=== PATIENT | female | born 1980 | race Caucasian/White ===

== ENCOUNTER 2017-04-02 09:27 | Emergency (ER) | payer OTHER ==
[~2017-04-02] VITALS: Ht 160 cm; Wt 127.9 kg
[~2017-04-02 09:27] MED LIST: ALBUTEROL2.5 MG/0.1 IH; ALBUTEROL2.5 MG/31 INH; AMOXICILLIN875 MG PO; CLEOCIN HCL300 MG PO; HYDROCODONE-APA1 TA1; KEFLEX500 MG PO; LEXAPRO5 MG PO; MOBIC15 MG PO; PENTAZOCINE-NA1 EACH PO; PREDNISONE 10 M10 M1 PO; PREDNISONE 20 M20 MG PO; PREDNISONE50 MG PO; ROBAXIN 750 MG750 M1 PO; TRAMADOL 50 MG50 MG PO; TUSSIONEX PENN473 ML PO; VENTOLIN HFA 1818 GM; VENTOLIN HFA 1818 GM INH; VICODIN; VITAMIN D 5050000 I1 PO; XANAX 0.5 MG0.5 MG PO
[2017-04-02] MEDS ORDERED: TAMIFLU6 MG/1 ML PO (09:41)
[2017-04-02] MEDS ORDERED: MUCINEX100 MG PO (09:41)
[2017-04-02] MEDS ORDERED: TYLENOL325 MG PO (09:42)
[2017-04-02] MEDS ORDERED: TESSALON PERLE100 MG PO (09:42)
[2017-04-02] MEDS ORDERED: ROBITUSSIN100 MG/53 PO (09:42)
[2017-04-02] MEDS ORDERED: IBUPROFEN 200200 M1 PO (09:42)
[2017-04-02] MEDS ORDERED: PREDNISONE 20 M20 M1 PO (09:46)
[2017-04-02] MEDS ORDERED: TUSSIONEX PENN115 ML PO (09:46)
[2017-04-02] MEDS ORDERED: ZPAK PO (09:46)
[2017-04-02 09:50] VITALS: BP 151/92
== END 2017-04-02 09:50 | disposition home or self-care (01) ==
LOC: M.ERS 09:27
DX: J06.9 Acute upper respiratory infection, unspecified (principal); J45.909 Unspecified asthma, uncomplicated; Z90.49 Acquired absence of other specified parts of digestive tract; Z88.5 Allergy status to narcotic agent

== ENCOUNTER 2017-05-20 10:27 | Emergency (ER) | payer OTHER ==
[~2017-05-20] VITALS: Ht 160 cm; Wt 124.7 kg
[~2017-05-20 10:27] MED LIST changes: +IBUPROFEN 200200 M1 PO; +MUCINEX100 MG PO; +PREDNISONE 20 M20 M1 PO; +ROBITUSSIN100 MG/53 PO; +TAMIFLU6 MG/1 ML PO; +TESSALON PERLE100 MG PO; +TUSSIONEX PENN115 ML PO; +TYLENOL325 MG PO; +ZPAK PO
[2017-05-20] MEDS ORDERED: OMEPRAZOLE40 MG PO (10:37)
[2017-05-20 10:58] LABS: ABSOLUTE BASOPHILS 0.1 thou/uL (0.0-0.2); ABSOLUTE EOSINOPHILS 0.1 thou/uL (0.0-0.7); ABSOLUTE LYMPHOCYTES 2.4 thou/uL (0.8-5.3); ABSOLUTE MONOCYTES 0.7 thou/uL (0.0-1.2); ABSOLUTE NEUTROPHILS 5.9 thou/uL (1.6-8.1); BASOPHILS 1.1 %; EOSINOPHILS 0.7 %; HEMATOCRIT 40.4 % (37.0-47.0); HEMOGLOBIN 14.1 gm/dL (12.0-15.0); LYMPHOCYTES 26.3 %; MCH 29.1 pg (26.0-34.0); MCHC 34.9 g/dL (28.0-37.0); MCV 83.4 fL (80.0-100.0); MONOCYTES 7.8 %; MPV 7.4 fl. (7.2-11.1); NUCLEATED RBCS 0 /100WBC; PLATELET COUNT* 293 thou/uL (150-400); POLYS 64.1 %; RBC 4.85 mil/uL (4.20-5.00); WBC 9.2 thou/uL (4.0-11.0)
[2017-05-20 11:07] LABS: ANION GAP 7 mmol/L (7-16); BUN 15 mg/dL (7-18); CALCIUM 8.7 mg/dL (8.5-10.1); CHLORIDE 105 mmol/L (98-107); CO2 29 mmol/L (21-32); CREATININE 0.9 mg/dL (0.6-1.3); GLUCOSE 108 mg/dL (70-99); POTASSIUM 3.4 mmol/L (3.5-5.1); SODIUM 141 mmol/L (136-145)
[2017-05-20 11:10] LABS: APTT 26.6 Seconds (25.0-31.3); PROTIME 10.1 Seconds (9.20-11.50)
[2017-05-20 11:29] LABS: ALBUMIN 3.6 g/dL (3.4-5.0); ALKALINE PHOSPHATASE 93 U/L (46-116); CK-MB MASS < 0.5 ng/mL (<0.5-3.6); LIPASE 129 U/L (73-393); MAGNESIUM 1.9 mg/dL (1.8-2.4); NT-PRO BRAIN NAT PEPTIDE 7 pg/mL (<300); SGOT 20 U/L (15-37); SGPT 26 U/L (30-65); TOTAL BILIRUBIN 0.5 mg/dL (<0.1-1.0); TOTAL PROTEIN 7.5 g/dL (6.4-8.2); TROPONIN-I LEVEL <0.06 ng/mL (<0.06)
[2017-05-20 11:35] VITALS: BP 115/71
--- NOTE | 2017-05-21 14:26 | EKG ---
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 : 1980 Requested By: Shyam Michaels Order Number: [id number] MD: Raciel Potter Measurements Intervals [place] Rate: 103 P: 27 PA: 150 QRS: 2 QRSD: 99 T: 18 QT: 342 QTc: 448 Interpretive Statements Sinus tachycardia Low voltage, precordial leads Abnormal R-wave progression, early transition Borderline T abnormalities, anterior leads Compared to ECG 07/29/2015 01:02:50 Low QRS voltage now present T-wave abnormality now present Intraventricular conduction delay no longer present ST (T wave) deviation no longer present Electronically Signed On 05-21-2017 14:26:05 CDT by Raciel Potter [email or web address] <ELECTRONICALLY SIGNED> By: Raciel Potter MD, FACC 05/21/17 1426 1032 1032 Raciel Potter MD, FAC /EPI
== END 2017-05-20 11:35 | disposition home or self-care (01) ==
LOC: M.ERS 10:27
PROVIDERS: Family Medicine
DX: R07.9 Chest pain, unspecified (principal); J45.909 Unspecified asthma, uncomplicated; Z90.49 Acquired absence of other specified parts of digestive tract; Z88.5 Allergy status to narcotic agent

== ENCOUNTER 2018-06-30 09:28 | Emergency (ER) | payer OTHER ==
[~2018-06-30] VITALS: Ht 160 cm; Wt 125.7 kg
[~2018-06-30 09:28] MED LIST changes: +OMEPRAZOLE40 MG PO
[2018-06-30 09:56] LABS: URINE BILIRUBIN NEGATIVE (Negative); URINE BLOOD 3+ (Negative); URINE CLARITY CLEAR; URINE COLOR YELLOW; URINE GLUCOSE-RANDOM NEGATIVE (Negative); URINE KETONES TRACE (Negative); URINE LEUKOCYTES-REFLEX NEGATIVE (Negative); URINE NITRITE-REFLEX NEGATIVE (Negative); URINE PROTEIN 1+ (Negative); URINE SPECIFIC GRAVITY 1.025 (1.005-1.030); URINE UROBILINOGEN 0.2 E.U./dl (0.2-1.0)
[2018-06-30 10:05] LABS: ABSOLUTE BASOPHILS 0.1 thou/uL (0.0-0.2); ABSOLUTE EOSINOPHILS 0.1 thou/uL (0.0-0.7); ABSOLUTE LYMPHOCYTES 2.3 thou/uL (0.8-5.3); ABSOLUTE MONOCYTES 0.8 thou/uL (0.0-1.2); BASOPHILS 1.2 %; EOSINOPHILS 0.5 %; HEMATOCRIT 43.7 % (37.0-47.0); HEMOGLOBIN 15.2 gm/dL (12.0-15.0); MCH 28.9 pg (26.0-34.0); MCHC 34.9 g/dL (28.0-37.0); MCV 82.8 fL (80.0-100.0); MONOCYTES 7.9 %; NUCLEATED RBCS 0 /100WBC; PLATELET COUNT* 311 thou/uL (150-400); POLYS 68.4 %; RBC 5.28 mil/uL (4.20-5.00); RDW-CV 13.8 % (10.5-14.5); WBC 10.3 thou/uL (4.0-11.0)
[2018-06-30 10:07] LABS: BACTERIA-REFLEX None Seen /HPF (None Seen); CASTS None Seen /LPF (None Seen); CRYSTALS None Seen /LPF (None Seen); MUCUS None Seen strn/LPF (None Seen); SQUAMOUS 0-3 Few /LPF (0-3); URINE RBC >20 Many /HPF (0-2); URINE WBC-REFLEX None Seen /HPF (0-5)
[2018-06-30 10:12] LABS: CALCIUM 9.3 mg/dL (8.5-10.1); POTASSIUM 3.3 mmol/L (3.5-5.1)
[2018-06-30 10:16] LABS: ALBUMIN 3.8 g/dL (3.4-5.0); TOTAL BILIRUBIN 0.5 mg/dL (<0.1-1.0); TOTAL PROTEIN 7.7 g/dL (6.4-8.2)
[2018-06-30 10:55] VITALS: BP 114/68
== END 2018-06-30 10:55 | disposition home or self-care (01) ==
LOC: M.ERS 09:28
PROVIDERS: Family Medicine
DX: R10.9 Unspecified abdominal pain (principal); M79.604 Pain in right leg; J45.909 Unspecified asthma, uncomplicated; Z88.5 Allergy status to narcotic agent; Z90.49 Acquired absence of other specified parts of digestive tract

== ENCOUNTER → 2018-07-21 | Outpatient (CLI) | payer OTHER | LOC: M.RAD 15:47 | DX: N39.0 Urinary tract infection, site not specified (principal); M54.5 Low back pain ==

== ENCOUNTER → 2018-12-07 | Outpatient (CLI) | payer OTHER | LOC: M.ULTRA 09:39 | DX: R22.42 Localized swelling, mass and lump, left lower limb (principal) ==

== ENCOUNTER 2020-09-17 21:11 | Inpatient (IN) | payer OTHER ==
[~2020-09-17] VITALS: Ht 160 cm; Wt 128.6 kg
[2020-09-17 21:15] VITALS: BP 100/61
[2020-09-17 22:13] LABS: BE -0.1 mmol/L (-2 to +3); PCO2 30.8 mmHg (35.0-45.0); PO2 60.1 mmHg (75.0-100.0); pH 7.478 (7.340-7.450)
[2020-09-18] VITALS (10 sets, daily range): BP systolic 112–141; BP diastolic 55–89
[2020-09-18 05:53] LABS: CALCIUM 7.3 mg/dL (8.5-10.1); CREATININE 0.8 mg/dL (0.6-1.3)
[2020-09-18 05:57] LABS: ALBUMIN 2.9 g/dL (3.4-5.0); TOTAL BILIRUBIN 0.4 mg/dL (<0.1-1.0); TOTAL PROTEIN 6.7 g/dL (6.4-8.2)
[2020-09-18 05:58] LABS: POTASSIUM 2.8 mmol/L (3.5-5.1)
[2020-09-18 06:02] LABS: ABSOLUTE LYMPHOCYTES 0.5 thou/uL (0.8-5.3); ABSOLUTE MONOCYTES 0.1 thou/uL (0.0-1.2); ABSOLUTE NEUTROPHILS 2.9 thou/uL (1.6-8.1); BASOPHILS 0.3 %; HEMATOCRIT 38.6 % (37.0-47.0); HEMOGLOBIN 13.3 gm/dL (12.0-15.0); LYMPHOCYTES 15.3 %; MCH 28.4 pg (26.0-34.0); MCHC 34.4 g/dL (28.0-37.0); MCV 82.7 fL (80.0-100.0); MONOCYTES 3.3 %; MPV 7.1 fl. (7.2-11.1); NUCLEATED RBCS 0 /100WBC; PLATELET COUNT* 163 thou/uL (150-400); POLYS 81.1 %; RBC 4.67 mil/uL (4.20-5.00); RDW-CV 14.2 % (10.5-14.5); WBC 3.6 thou/uL (4.0-11.0)
--- NOTE | 2020-09-18 13:22 | NUR ---
INFECTION CONTROL: PER [facility] DEPARTMENT PATIENT HAD A POSITIVE COVID 19 PCR TEST ON 09/11/20 AT [facility].
--- NOTE | 2020-09-18 17:03 | NUR ---
RT WAS CALLED DUE TO THE PATIENT'S O2 SAT DROPPING TO 89%. RT INCREASED THE PATIENT'S OXYGEN TO 15 LITERS VIA NASAL CANULA AND REPORT THEY ARE GOING TO PUT THE PATIENT ON A BUBBLER AND THEN HI FLOW O2.
--- NOTE | 2020-09-18 18:07 | NUR ---
PT PLACED ON BIPAP AT 12/8, 80% BY RESPIRATORY THERAPY. PT'S O2 SATS AT THIS TIME ARE 96%.
--- NOTE | 2020-09-18 18:08 | NUR ---
DR. MCGHEE WAS CONTACTED ABOUT THE PATIENT'S ELEVATED D-DIMER LEVEL OF 0.70 AND INQUIRED IF SHE WOULD LIKE THE PATIENT TO HAVE A CTA TO RULE OUT PE. DR. MCGHEE DOES NOT WANT TO ORDER A CTA AT THIS TIME DUE TO THE PATIENT BEING UNSTABLE AND NOT WANTING TO LAY THE PATIENT FLAT.
[2020-09-18 18:40] LABS: BE -1.5 mmol/L (-2 to +3); PCO2 31.2 mmHg (35.0-45.0); pH 7.456 (7.340-7.450)
[2020-09-18 18:48] LABS: PO2 179.9 mmHg (75.0-100.0)
[2020-09-18 21:52] LABS: ALBUMIN 2.8 g/dL (3.4-5.0); CALCIUM 7.2 mg/dL (8.5-10.1); CREATININE 0.8 mg/dL (0.6-1.3); TOTAL BILIRUBIN 0.5 mg/dL (<0.1-1.0); TOTAL PROTEIN 6.7 g/dL (6.4-8.2)
[2020-09-18 21:56] LABS: POTASSIUM 2.7 mmol/L (3.5-5.1)
[2020-09-19] VITALS (57 sets, daily range): BP systolic 87–133; BP diastolic 48–85
[2020-09-19 08:27] LABS: HEMATOCRIT 35.4 % (37.0-47.0); HEMOGLOBIN 12.6 gm/dL (12.0-15.0); MCH 28.9 pg (26.0-34.0); MCHC 35.5 g/dL (28.0-37.0); MCV 81.5 fL (80.0-100.0); MPV 7.2 fl. (7.2-11.1); RBC 4.35 mil/uL (4.20-5.00); RDW-CV 13.8 % (10.5-14.5); WBC 4.4 thou/uL (4.0-11.0)
[2020-09-19 08:35] LABS: CALCIUM 7.4 mg/dL (8.5-10.1)
--- NOTE | 2020-09-19 09:29 | NUR ---
CM COMPLETED THE INITIAL ASSESSMENT WITH PT'S MOTHER, HANS, D/T PT BEING ON COVID ISOLATION PRECAUTIONS. PT LIVES WITH HER SISTER AND LAURA IN [place]. 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 PT RECEIVED 1ST COVID VACCINE AND CONTRACTED COVID "THE DAY BEFORE SHE WAS SUPPOSED TO GO FOR HER SECOND SHOT." PT IS ACTIVE AND INDEPENDENT WITH CARES. PT HAS NO HX WITH OR SNF. PT HAS NO DMES, OTHER THAN ALBUETROL INHALOR. PT IS ON BIPAP, IT WAS INCREASED FROM 50% TO 80% CM TO CONT TO FOLLOW.
[2020-09-19 15:17] LABS: CALCIUM 7.7 mg/dL (8.5-10.1); CREATININE 0.9 mg/dL (0.6-1.3); MAGNESIUM 2.3 mg/dL (1.8-2.4); POTASSIUM 3.6 mmol/L (3.5-5.1)
--- NOTE | 2020-09-19 23:23 | CON ---
[address] [address] CONSULTATION Name: GISELL JUAREZ Room: [address] IN M.R.#: [id number] Admission: 09/18/20 Attend Phys: Haydee Cha MD Discharge: Date of : 78 Report #: [id number] THIS REPORT FOR: cc: Carla Rodriguez Mischelle RNP Pervez, Adeel MD ~ DATE OF CONSULTATION: 09/19/2020 Consult has been requested by Dr. Choudhary. INDICATION FOR CONSULTATION: Acute hypoxemic respiratory failure secondary to COVID-19. HISTORY OF PRESENT ILLNESS: This is a 39-year-old female. She has a history of morbid obesity, body mass index is 47. The patient also does have a history of bronchial asthma. She has not previously been diagnosed with obstructive sleep apnea; however, it appears to me that she has previously undiagnosed obstructive sleep apnea. 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 The patient in fact has been vaccinated with the Pfizer COVID-19 vaccine. She has received the first dose over three weeks ago. She was due for the second dose last Wednesday, which she missed. The patient has now presented with worsening shortness of breath, has had a cough. There is not much sputum. She has a high-grade fever, has body aches and chills. Has had a headache. Since admission, there has been a progressively increasing hypoxemia. The patient initially was maintaining O2 saturation with 2 liters nasal cannula although she was hypoxemic on room air. The patient is currently needing an 80% BiPAP, which is set at 12/8 TO maintain O2 saturation in the low 90s. She also is tachypneic, respiratory rate is around 35. She had a high-grade fever this morning at 38.9. The patient remains fully alert and awake. REVIEW OF SYSTEMS: For 12 points is negative except as mentioned above. PAST MEDICAL HISTORY: Bronchial asthma; morbid obesity, body mass index 47; cholecystectomy; possible history of epilepsy. CURRENT MEDICATIONS: List in [employer] reviewed. Home medication list in [employer] reviewed. ALLERGIES: She has had an ADVERSE REACTION OR ALLERGY TO CODEINE. SOCIAL HISTORY: Lifetime nonsmoker. No known history of heavy alcohol use or illegal drug use. FAMILY HISTORY: There [place] [address] CONSULTATION Name: GISELL JUAREZ Room: [address]#: [id number] Admission: 09/18/20 Attend Phys: Haydee Cha MD Discharge: Date of : 78 Report #: [id number] PHYSICAL EXAMINATION: GENERAL: She is alert, awake and oriented. She has had a BiPAP of 12/8, 80% FIO2. O2 saturation is 93-94%. She is sitting in a chair. VITAL SIGNS: Respiratory rate is elevated, it around 34-35, heart rate 80, blood pressure 100/53, high-grade fever this morning 38.9. HEENT: Normocephalic and atraumatic. BiPAP mask is in place. NECK: Does not show raised JVP, asymmetry, mass or lymph nodes. CHEST: Symmetrical expansion on inspection and palpation. On auscultation, breath sounds are bilaterally equal, but decreased. I do not hear any added sounds. HEART: Regular. There is no murmur. ABDOMEN: Soft and nontender. EXTREMITIES: Lower extremities show no edema, no calf tenderness. SKIN: Dry and intact. NEUROLOGIC: Moves all extremities bilaterally equally and spontaneously with no focal deficit identified. LABORATORY DATA: The patient's last available chest x-rays from night before last shows bilateral infiltrates consistent with COVID-19. The patient's lab work in [facility] reviewed. Arterial blood gas consistent with acute hypoxemic respiratory failure, also in [facility] reviewed. COVID-19 antigen is positive. ASSESSMENT AND PLAN: 1. Acute hypoxemic respiratory failure and ARDS secondary to COVID-19. I adjusted the BiPAP. For now, we will keep her on the BiPAP. It may be possible to maintain O2 saturation with a heated high-flow nasal cannula at this time; however, the patient also has a high work of breathing. If her work of breathing reduces, certainly we will try her off BiPAP while awake. She needs a BiPAP while asleep for now. 2. COVID-19. Agree with dexamethasone, currently 10 mg b.i.d. Considering that she is hypoxemic and also has a history of bronchial asthma, I feel this is reasonable. I did not change the dose at this time. We will continue with remdesivir. Follow LFTs. She is due for a second unit of convalescent plasma today. Note that she was vaccinated with one dose of Pfizer more than three weeks ago. If Actemra becomes available, I recommend giving her Actemra as well. 3. Pulmonary infiltrates. Pending further evaluation. We will treat with broad spectrum antibiotics. Cultures and serologies are ordered. Zithromax and ceftriaxone ordered. 4. Asthma exacerbation, dexamethasone as above, also on DuoNeb. 5. Obstructive sleep apnea, she appears to have underlying, on BiPAP at this time. 6. Hypokalemia/hypotension/fluid and electrolytes. I would like to diurese her [address] [address] CONSULTATION Name: GISELL JUAREZ Room: [address] IN .R.#: [id number] Admission: 09/18/20 Attend Phys: Haydee Cha MD Discharge: Date of : 78 Report #: [id number] if possible. I will go ahead and give her some midodrine to facilitate this. I would, however, wait until her potassium is replaced. Repeat labs for this afternoon are ordered 7. DVT prophylaxis. I will increase Lovenox to intermediate dose. D-dimer is mildly elevated. 8. Gastrointestinal prophylaxis, Protonix. 9. Clostridium difficile prophylaxis, Lactinex. 10. Limited IV access. Agree with plans for a PICC line placement. 11. Hyperglycemia. I would anticipate rise in blood glucoses. Therefore, I will go ahead and start insulin sliding scale. The patient is critically ill at this time. Total time spent providing critical care to this patient today exceeds 42 minutes. <ELECTRONICALLY SIGNED> By: Aakash Causey MD 09/19/20 2323 1356 2115Avel Causey MD /nt
[2020-09-20] VITALS (49 sets, daily range): BP systolic 74–149; BP diastolic 45–95
[2020-09-20 04:35] LABS: ABSOLUTE LYMPHOCYTES 0.4 thou/uL (0.8-5.3); ABSOLUTE MONOCYTES 0.2 thou/uL (0.0-1.2); ABSOLUTE NEUTROPHILS 2.9 thou/uL (1.6-8.1); BASOPHILS 0.3 %; HEMATOCRIT 36.4 % (37.0-47.0); HEMOGLOBIN 12.4 gm/dL (12.0-15.0); LYMPHOCYTES 12.5 %; MCH 28.2 pg (26.0-34.0); MCHC 34.1 g/dL (28.0-37.0); MCV 82.5 fL (80.0-100.0); MONOCYTES 5.1 %; MPV 6.8 fl. (7.2-11.1); NUCLEATED RBCS 0 /100WBC; PLATELET COUNT* 193 thou/uL (150-400); POLYS 82.1 %; RBC 4.42 mil/uL (4.20-5.00); RDW-CV 14.1 % (10.5-14.5); WBC 3.6 thou/uL (4.0-11.0)
[2020-09-20 05:07] LABS: ALBUMIN 2.6 g/dL (3.4-5.0); CREATININE 0.9 mg/dL (0.6-1.3); MAGNESIUM 2.7 mg/dL (1.8-2.4); POTASSIUM 3.5 mmol/L (3.5-5.1); TOTAL BILIRUBIN 0.4 mg/dL (<0.1-1.0)
--- NOTE | 2020-09-20 14:16 | NUR ---
ICU Rounds: Patient currently on HF NC (FiO2 100% and 55L). Bipap used as needed. Continued abx, steroids and remdesevir. Patient to remain through the weekend.
[2020-09-20 22:35] LABS: URINE BILIRUBIN NEGATIVE (Negative); URINE BLOOD 3+ (Negative); URINE CLARITY CLEAR; URINE COLOR YELLOW; URINE GLUCOSE-RANDOM TRACE (Negative); URINE KETONES NEGATIVE (Negative); URINE LEUKOCYTES-REFLEX TRACE (Negative); URINE NITRITE-REFLEX NEGATIVE (Negative); URINE PROTEIN 1+ (Negative); URINE SPECIFIC GRAVITY 1.015 (1.005-1.030); URINE UROBILINOGEN 0.2 E.U./dl (0.2-1.0)
[2020-09-20 22:47] LABS: BACTERIA-REFLEX 1-9 Few /HPF (None Seen); CASTS None Seen /LPF (None Seen); CRYSTALS None Seen /LPF (None Seen); SQUAMOUS 4-10 Moderate /LPF (0-3); URINE WBC-REFLEX 0-5 Rare /HPF (0-5)
[2020-09-21] VITALS (35 sets, daily range): BP systolic 96–149; BP diastolic 55–113
[2020-09-21 03:42] LABS: HEMATOCRIT 36.8 % (37.0-47.0); HEMOGLOBIN 12.8 gm/dL (12.0-15.0); MCH 28.6 pg (26.0-34.0); MCHC 34.9 g/dL (28.0-37.0); MCV 81.8 fL (80.0-100.0); MPV 6.7 fl. (7.2-11.1); NUCLEATED RBCS 0 /100WBC; RBC 4.49 mil/uL (4.20-5.00); RDW-CV 14.5 % (10.5-14.5); WBC 12.2 thou/uL (4.0-11.0)
[2020-09-21 03:56] LABS: ALBUMIN 2.6 g/dL (3.4-5.0); CALCIUM 7.8 mg/dL (8.5-10.1); CREATININE 0.9 mg/dL (0.6-1.3); MAGNESIUM 2.7 mg/dL (1.8-2.4); PHOSPHORUS* 2.8 mg/dL (2.5-4.9); POTASSIUM 3.3 mmol/L (3.5-5.1); TOTAL BILIRUBIN 0.4 mg/dL (<0.1-1.0); TOTAL PROTEIN 6.5 g/dL (6.4-8.2)
[2020-09-21 04:12] LABS: PLATELET COUNT* 277 thou/uL (150-400)
[2020-09-21 06:43] LABS: ABSOLUTE LYMPHOCYTES 0.2 thou/uL (0.8-5.3); ABSOLUTE MONOCYTES 0.5 thou/uL (0.0-1.2); ABSOLUTE NEUTROPHILS 11.5 thou/uL (1.6-8.1); PLATELET ESTIMATE ADEQUATE
[2020-09-21 08:57] LABS: URINE BILIRUBIN NEGATIVE (Negative); URINE BLOOD 3+ (Negative); URINE CLARITY CLEAR; URINE COLOR YELLOW; URINE GLUCOSE-RANDOM NEGATIVE (Negative); URINE KETONES NEGATIVE (Negative); URINE LEUKOCYTES NEGATIVE (Negative); URINE NITRITE NEGATIVE (Negative); URINE PROTEIN 1+ (Negative); URINE UROBILINOGEN 0.2 E.U./dl (0.2-1.0)
[2020-09-21 09:23] LABS: CASTS None Seen /LPF (None Seen); CRYSTALS None Seen /LPF (None Seen); SQUAMOUS 0-3 Few /LPF (0-3); URINE RBC 3-10 Few /HPF (0-2); URINE WBC 0-5 Rare /HPF (0-5)
[2020-09-22] VITALS (23 sets, daily range): BP systolic 112–165; BP diastolic 42–119
[2020-09-23] VITALS (137 sets, daily range): BP systolic 75–167; BP diastolic 33–103
[2020-09-23 05:27] LABS: BE 3.9 mmol/L (-2 to +3); PCO2 36.7 mmHg (35.0-45.0); pH 7.488 (7.340-7.450)
--- NOTE | 2020-09-23 07:40 | NUR ---
Critical ABG's called to Dr George, orders to intubate pt received. Pt was intubated by Dr Tena, (see ventilator bundles) Propofol and fentanyl started for sedation.
[2020-09-23 09:49] LABS: BE 0.5 mmol/L (-2 to +3); PCO2 38.3 mmHg (35.0-45.0); pH 7.428 (7.340-7.450)
[2020-09-23 09:51] LABS: PO2 56.4 mmHg (75.0-100.0)
[2020-09-23 12:03] LABS: HEMATOCRIT 38.8 % (37.0-47.0); HEMOGLOBIN 13.3 gm/dL (12.0-15.0); MCH 28.8 pg (26.0-34.0); MCHC 34.3 g/dL (28.0-37.0); MCV 83.8 fL (80.0-100.0); MPV 7.4 fl. (7.2-11.1); NUCLEATED RBCS 0 /100WBC; RBC 4.63 mil/uL (4.20-5.00); RDW-CV 14.3 % (10.5-14.5); WBC 28.7 thou/uL (4.0-11.0)
[2020-09-23 12:05] LABS: PLATELET COUNT* 106 thou/uL (150-400)
[2020-09-23 12:12] LABS: CALCIUM 7.3 mg/dL (8.5-10.1); CREATININE 1.5 mg/dL (0.6-1.3); POTASSIUM 4.4 mmol/L (3.5-5.1)
[2020-09-23 12:16] LABS: ALBUMIN 2.7 g/dL (3.4-5.0); MAGNESIUM 2.4 mg/dL (1.8-2.4); TOTAL BILIRUBIN 1.4 mg/dL (<0.1-1.0); TOTAL PROTEIN 6.6 g/dL (6.4-8.2)
[2020-09-23 13:07] LABS: ABSOLUTE LYMPHOCYTES 1.7 thou/uL (0.8-5.3); ABSOLUTE MONOCYTES 0.6 thou/uL (0.0-1.2); ABSOLUTE NEUTROPHILS 26.4 thou/uL (1.6-8.1); PLATELET ESTIMATE ADEQUATE
--- NOTE | 2020-09-23 15:34 | 2DMMODE ---
[place] [address] 2 D/M-MODE ECHOCARDIOGRAM Name: GISELL JUAREZ Room: [address] ADM IN .R.#: [id number] Admission: 09/18/20 Attend Phys: Haydee Cha, Discharge: Date of : 78 Date of Service: 09/23/20 1533 Report #: [id number] THIS REPORT FOR: cc: Carla Rodriguez Mischelle RNP Blick, David R. MD [facility] ~ APPROVED REPORT Study performed: 09/23/2020 10:30:22 EXAM: Comprehensive 2D, Doppler, and color-flow Echocardiogram Patient Location: In-Patient Room #: 003 Status: routine BSA: 2.23 HR: 83 bpm BP: 94/45 mmHg Rhythm: NSR Other Information Study Quality: Fair Indications Dyspnea 2D Dimensions LVOT Diam: 19.70 (18-24mm) Volumes Left Atrial Volume (Systole) LA ESV Index: 14.40 mL/m2 Aortic Valve AoV Peak Pj.: 1.08 m/s AO Peak Gr.: 4.63 mmHg LVOT Max P.80 mmHg AO Mean Gr.: 2.93 mmHg LVOT Mean P.02 mmHg LVOT Max V: 1.10 m/s AO V2 VTI: 18.60 cm LVOT Mean V: 0.64 m/s DEMI (VTI): 3.37 cm2 LVOT V1 VTI: 20.55 cm Mitral Valve E/A Ratio: 1.06 MV Decel. Time: 252.78 ms MV E Max Pj.: 0.61 m/[place] [address] 2 D/M-MODE ECHOCARDIOGRAM Name: GISELL JUAREZ Room: [address] IN ..#: [id number] Admission: 09/18/20 Attend Phys: Haydee Cha, Discharge: Date of : 78 Date of Service: 09/23/20 1533 Report #: [id number] MV PHT: 73.31 ms MVA (PHT): 3.00 cm2 TDI E/Lateral E': 5.55 E/Medial E': 5.55 Medial E' Pj.: 0.11 m/s Lateral E' Pj.: 0.11 m/s Tricuspid Valve RAP Estimate: 5.00 mmHg TR Peak Gr.: 40.08 mmHg RVSP: 45.00 mmHg PA Pressure: 45.00 mmHg Left Ventricle The left ventricle is normal size. There is normal LV segmental wall motion. There is normal left ventricular wall thickness. Left ventricular systolic function is normal. The left ventricular ejection fraction is within the normal range. LVEF is 60-65%. The left ventricular diastolic function is normal. Right Ventricle The right ventricle is normal size. The right ventricular systolic function is normal. Atria The left atrium size is normal. The right atrium size is normal. Aortic Valve The aortic valve is normal in structure. No aortic regurgitation is present. There is no aortic valvular stenosis. Mitral Valve The mitral valve is normal in structure. There is trace mitral valve regurgitation noted. No evidence of mitral valve stenosis. Tricuspid Valve The tricuspid valve is normal in structure. Mild tricuspid regurgitation. estimated pa pressure 50 mm hg Pulmonic Valve The pulmonary valve is normal in structure. There is no pulmonic valvular regurgitation. Great Vessels The aortic root is normal in size. IVC [place] [address] 2 D/M-MODE ECHOCARDIOGRAM Name: GISELL JUAREZ Room: [address] IN M.R.#: [id number] Admission: 09/18/20 Attend Phys: Haydee Cha, Discharge: Date of : 78 Date of Service: 09/23/20 1533 Report #: [id number] collapses >50% with inspiration. Pericardium There is no pericardial effusion. <Conclusion> LVEF is 60-65%. Mild tricuspid regurgitation. estimated pa pressure 50 mm hg <ELECTRONICALLY SIGNED> By: Oc Rowe MD, [facility] 09/23/20 [phone] 32 Oc Rowe MD, [facility] /INF
--- NOTE | 2020-09-23 16:11 | NUR ---
ICU ROUNDS: PT IS ON VENT, INTUBATION WAS ORDERED D/T "CRITICAL ABGS. SEDATION ALSO STARTED.
[2020-09-23 17:23] LABS: BE -3.1 mmol/L (-2 to +3); PO2 95.2 mmHg (75.0-100.0)
[2020-09-23 17:26] LABS: PCO2 68.2 mmHg (35.0-45.0); pH 7.207 (7.340-7.450)
[2020-09-23 17:51] LABS: ALBUMIN 2.8 g/dL (3.4-5.0); CALCIUM 7.5 mg/dL (8.5-10.1); CREATININE 1.8 mg/dL (0.6-1.3); DIRECT BILIRUBIN 0.7 mg/dL (<0.1-0.3); MAGNESIUM 2.4 mg/dL (1.8-2.4); POTASSIUM 4.7 mmol/L (3.5-5.1); TOTAL BILIRUBIN 1.2 mg/dL (<0.1-1.0); TOTAL PROTEIN 6.6 g/dL (6.4-8.2)
[2020-09-23 20:34] LABS: BE -5.7 mmol/L (-2 to +3); PCO2 45.6 mmHg (35.0-45.0); PO2 91.7 mmHg (75.0-100.0)
[2020-09-24] VITALS (24 sets, daily range): BP systolic 95–182; BP diastolic 54–95
[2020-09-24 07:20] LABS: ABSOLUTE BASOPHILS 0.1 thou/uL (0.0-0.2); ABSOLUTE LYMPHOCYTES 0.8 thou/uL (0.8-5.3); ABSOLUTE MONOCYTES 1.5 thou/uL (0.0-1.2); ABSOLUTE NEUTROPHILS 22.2 thou/uL (1.6-8.1); BASOPHILS 0.5 %; EOSINOPHILS 0.1 %; HEMATOCRIT 38.3 % (37.0-47.0); HEMOGLOBIN 12.8 gm/dL (12.0-15.0); LYMPHOCYTES 3.4 %; MCH 28.1 pg (26.0-34.0); MCHC 33.5 g/dL (28.0-37.0); MCV 84.1 fL (80.0-100.0); MONOCYTES 5.9 %; MPV 8.6 fl. (7.2-11.1); NUCLEATED RBCS 0 /100WBC; PLATELET COUNT* 64 thou/uL (150-400); POLYS 90.1 %; RBC 4.55 mil/uL (4.20-5.00); RDW-CV 14.3 % (10.5-14.5); WBC 24.7 thou/uL (4.0-11.0)
[2020-09-24 07:34] LABS: ALBUMIN 2.7 g/dL (3.4-5.0); CALCIUM 7.5 mg/dL (8.5-10.1); CREATININE 2.4 mg/dL (0.6-1.3); MAGNESIUM 2.7 mg/dL (1.8-2.4); PHOSPHORUS* 4.3 mg/dL (2.5-4.9); POTASSIUM 4.2 mmol/L (3.5-5.1); TOTAL BILIRUBIN 0.8 mg/dL (<0.1-1.0); TOTAL PROTEIN 6.2 g/dL (6.4-8.2)
--- NOTE | 2020-09-24 07:54 | NUR ---
ASSUMED PATIENT CARE AT 1900. ASSESSMENTS COMPLETED CHARTED. CARDIAC MONITORING IN PLACE. HOURLY ROUNDING IN PLACE FOR PATIENT SAFETY. FALL PRECAUTIONS IN PLACE FOR PATIENT SAFETY. BED LOCKED AND IN LOWEST POSITION.
[2020-09-24 07:56] LABS: PCO2 44.7 mmHg (35.0-45.0); PO2 91.5 mmHg (75.0-100.0); pH 7.344 (7.340-7.450)
--- NOTE | 2020-09-24 17:11 | NUR ---
Case and plan of care reviewed with MD each weekday during patient's length of stay. Continue plan of care per MD orders for current dx. Remains on Vent 100% fiO2 IV sedation/Levo gtts
[2020-09-24 17:17] LABS: ABSOLUTE LYMPHOCYTES 0.6 thou/uL (0.8-5.3); ABSOLUTE MONOCYTES 0.8 thou/uL (0.0-1.2); ABSOLUTE NEUTROPHILS 14.9 thou/uL (1.6-8.1); BASOPHILS 0.3 %; EOSINOPHILS 0.1 %; HEMATOCRIT 32.9 % (37.0-47.0); HEMOGLOBIN 11.5 gm/dL (12.0-15.0); LYMPHOCYTES 3.8 %; MCH 28.9 pg (26.0-34.0); MCHC 34.9 g/dL (28.0-37.0); MONOCYTES 5.1 %; MPV 9.1 fl. (7.2-11.1); NUCLEATED RBCS 0 /100WBC; POLYS 90.7 %; RBC 3.96 mil/uL (4.20-5.00); RDW-CV 14.1 % (10.5-14.5); WBC 16.4 thou/uL (4.0-11.0)
[2020-09-24 17:26] LABS: CALCIUM 7.4 mg/dL (8.5-10.1); CREATININE 2.4 mg/dL (0.6-1.3); MAGNESIUM 2.3 mg/dL (1.8-2.4); POTASSIUM 3.5 mmol/L (3.5-5.1)
[2020-09-24 17:29] LABS: PLATELET COUNT* 49 thou/uL (150-400)
[2020-09-25] VITALS (30 sets, daily range): BP systolic 95–122; BP diastolic 53–68
[2020-09-25 05:13] LABS: HEMATOCRIT 30.2 % (37.0-47.0); HEMOGLOBIN 10.3 gm/dL (12.0-15.0); MCH 28.3 pg (26.0-34.0); MCV 83.1 fL (80.0-100.0); MPV 8.7 fl. (7.2-11.1); NUCLEATED RBCS 0 /100WBC; PLATELET COUNT* 53 thou/uL (150-400); RBC 3.64 mil/uL (4.20-5.00); RDW-CV 14.1 % (10.5-14.5)
[2020-09-25 05:23] LABS: CALCIUM 7.3 mg/dL (8.5-10.1); CREATININE 2.5 mg/dL (0.6-1.3); MAGNESIUM 2.3 mg/dL (1.8-2.4); POTASSIUM 3.7 mmol/L (3.5-5.1); TOTAL BILIRUBIN 0.5 mg/dL (<0.1-1.0); TOTAL PROTEIN 5.6 g/dL (6.4-8.2)
[2020-09-25 05:33] LABS: PHOSPHORUS* 3.6 mg/dL (2.5-4.9)
[2020-09-25 05:41] LABS: APTT 22.1 Seconds (25.0-31.3); INR 1.5; PROTIME 15.2 Seconds (9.20-11.50)
[2020-09-25 05:55] LABS: ABSOLUTE LYMPHOCYTES 0.8 thou/uL (0.8-5.3); ABSOLUTE MONOCYTES 0.6 thou/uL (0.0-1.2); ABSOLUTE NEUTROPHILS 14.6 thou/uL (1.6-8.1); PLATELET ESTIMATE DECREASED
[2020-09-25 05:56] LABS: ANISOCYTOSIS 1+; POIKILOCYTOSIS 1+
--- NOTE | 2020-09-25 06:49 | NUR ---
PT NOT PRONED DUE TO PATIENT TEMP OF 94 DEGREES AND USE OF THE BEAR HUGGER. ALSO, WITH ANY MOVEMENT OF PATIENT AT ALL, PT SATS WOULD DROP TO UPPER 70S TO LOW 80S, REQUIRING AT LEAST A 10 MINUTE RECOVERY TIME. PT [place] REQUESTED PT NOT BE PRONED AT THIS TIME.
[2020-09-25 07:23] LABS: BE -2.4 mmol/L (-2 to +3); PCO2 44.3 mmHg (35.0-45.0); PO2 88.9 mmHg (75.0-100.0); pH 7.341 (7.340-7.450)
--- NOTE | 2020-09-25 08:08 | NUR ---
UNABLE TO PRONE PT, PT WAS VERY UNSTABLE. PT WAS UNABLE TO EVEN STAY ON BACK FOR MORE THAT 2 MIN WITH OUT DESAT INTO THE 7'S. PT ALREADY ON 100% FIO2.
--- NOTE | 2020-09-25 08:44 | NUR ---
Case and plan of care reviewed with MD each weekday during patient's length of stay. Continue plan of care per MD orders for current dx. IV gtts for sedation/paralytics, Insulin. Redesivir/Abx Will continue to follow for dc planning needs
--- NOTE | 2020-09-25 19:00 | NUR ---
ASSUMED CARE OF PT AT 0700. PROPOFOL DISCONTINUED PER PROVIDER ORDER. THROUGHOUT SHIFT PT WAS UNABLE TO TOLERATE TURNS AND REMAINED R-SIDE LYING TO MAINTAIN OXYGEN SATURATIONS WITH SLIGHT BODY ADJUSTMENTS TO MAINTAIN SKIN INTEGRITY, PROVIDERS AWARE OF PT'S INTOLERANCE. PT WAS NOT PRONED TODAY PER PROVIDER ORDER TO ALLOW FOR DIALYSIS CATHETER PLACEMENT. PT REMAINS ON FENTANYL GTT, VERSED GTT, INSULIN GTT AND NIMBEX GTT PER PROVIDER ORDERS. PLAN TO START TUBE FEEDS AND DIALYSIS TONIGHT. FAMILY UPDATED ON PT STATUS AND PLAN OF CARE.
[2020-09-26] VITALS (24 sets, daily range): BP systolic 90–180; BP diastolic 56–92
[2020-09-26 06:06] LABS: ABSOLUTE LYMPHOCYTES 0.6 thou/uL (0.8-5.3); ABSOLUTE MONOCYTES 2.2 thou/uL (0.0-1.2); ABSOLUTE NEUTROPHILS 27.3 thou/uL (1.6-8.1); BASOPHILS 0.1 %; HEMATOCRIT 32.8 % (37.0-47.0); LYMPHOCYTES 1.9 %; MCH 28.3 pg (26.0-34.0); MCHC 33.6 g/dL (28.0-37.0); MCV 84.3 fL (80.0-100.0); MONOCYTES 7.4 %; MPV 8.9 fl. (7.2-11.1); NUCLEATED RBCS 0 /100WBC; PLATELET COUNT* 74 thou/uL (150-400); POLYS 90.6 %; RBC 3.89 mil/uL (4.20-5.00); RDW-CV 14.6 % (10.5-14.5); WBC 30.1 thou/uL (4.0-11.0)
[2020-09-26 06:20] LABS: ALBUMIN 2.9 g/dL (3.4-5.0); CALCIUM 7.4 mg/dL (8.5-10.1); CREATININE 2.2 mg/dL (0.6-1.3); MAGNESIUM 2.3 mg/dL (1.8-2.4); POTASSIUM 4.3 mmol/L (3.5-5.1); TOTAL BILIRUBIN 0.9 mg/dL (<0.1-1.0); TOTAL PROTEIN 5.7 g/dL (6.4-8.2)
[2020-09-26 06:30] LABS: PHOSPHORUS* 4.4 mg/dL (2.5-4.9)
[2020-09-26 08:10] LABS: PCO2 47.2 mmHg (35.0-45.0); PO2 118.3 mmHg (75.0-100.0); pH 7.313 (7.340-7.450)
[2020-09-26 15:07] LABS: HEPATITIS B SURFACE AG Negative (Negative)
--- NOTE | 2020-09-26 16:02 | NUR ---
Case and plan of care reviewed with MD each weekday during patient's length of stay. Continue plan of care per MD orders for current dx. Pt remains on Vent 85 FiO2. IV gtt sedation Will continue to follow for dc planning needs
[2020-09-26 20:55] LABS: URINE BILIRUBIN NEGATIVE (Negative); URINE BLOOD 3+ (Negative); URINE CLARITY CLOUDY; URINE COLOR YELLOW; URINE GLUCOSE-RANDOM NEGATIVE (Negative); URINE KETONES NEGATIVE (Negative); URINE LEUKOCYTES-REFLEX NEGATIVE (Negative); URINE NITRITE-REFLEX NEGATIVE (Negative); URINE PROTEIN 2+ (Negative); URINE SPECIFIC GRAVITY >= 1.030 (1.005-1.030); URINE UROBILINOGEN 0.2 E.U./dl (0.2-1.0)
[2020-09-26 21:05] LABS: SQUAMOUS >10 Many /LPF (0-3)
[2020-09-26 21:06] LABS: HYALINE CASTS 0-3 Few /LPF (None Seen); URINE RBC >20 Many /HPF (0-2)
[2020-09-26 21:08] LABS: CRYSTALS None Seen /LPF (None Seen); URINE WBC-REFLEX 6-15 Few /HPF (0-5)
[2020-09-26 21:09] LABS: BACTERIA-REFLEX None Seen /HPF (None Seen); MUCUS None Seen strn/LPF (None Seen)
[2020-09-27] VITALS (71 sets, daily range): BP systolic 71–158; BP diastolic 48–90
[2020-09-27 06:00] LABS: ABSOLUTE LYMPHOCYTES 0.4 thou/uL (0.8-5.3); ABSOLUTE MONOCYTES 1.3 thou/uL (0.0-1.2); ABSOLUTE NEUTROPHILS 16.6 thou/uL (1.6-8.1); BASOPHILS 0.2 %; HEMATOCRIT 27.2 % (37.0-47.0); HEMOGLOBIN 9.2 gm/dL (12.0-15.0); LYMPHOCYTES 2.3 %; MCH 28.4 pg (26.0-34.0); MCHC 33.8 g/dL (28.0-37.0); MCV 84.1 fL (80.0-100.0); MPV 8.8 fl. (7.2-11.1); NUCLEATED RBCS 0 /100WBC; POLYS 90.5 %; RBC 3.23 mil/uL (4.20-5.00); RDW-CV 14.3 % (10.5-14.5); WBC 18.3 thou/uL (4.0-11.0)
[2020-09-27 06:09] LABS: ALBUMIN 2.4 g/dL (3.4-5.0); CALCIUM 7.1 mg/dL (8.5-10.1); CREATININE 3.1 mg/dL (0.6-1.3); MAGNESIUM 2.3 mg/dL (1.8-2.4); PHOSPHORUS* 6.8 mg/dL (2.5-4.9); PLATELET COUNT* 40 thou/uL (150-400); POTASSIUM 4.9 mmol/L (3.5-5.1); TOTAL BILIRUBIN 0.6 mg/dL (<0.1-1.0)
[2020-09-27 08:25] LABS: BE -5.9 mmol/L (-2 to +3); PCO2 43.7 mmHg (35.0-45.0); PO2 75.9 mmHg (75.0-100.0)
[2020-09-27 08:26] LABS: pH 7.287 (7.340-7.450)
--- NOTE | 2020-09-27 08:44 | NUR ---
Case and plan of care reviewed with MD each weekday during patient's length of stay. Continue plan of care per MD orders for current dx. Remains on Vent 65 FiO2, Temp HD cath placed 09/25. IV Pressors and sedation gtts CM will continue to follow for Dc planning needs
--- NOTE | 2020-09-27 10:06 | CON ---
[address] [address] CONSULTATION Name: GISELL JUAREZ Room: [address] IN M.R.#: [id number] Admission: 09/18/20 Attend Phys: Haydee Cha MD Discharge: Date of : 78 Report #: [id number] THIS REPORT FOR: cc: Carla Rodriguez Mischelle RNP Khan, Abid R. MD ~ DATE OF CONSULTATION: 09/25/2020 NEPHROLOGY CONSULT REASON FOR CONSULTATION: Acute kidney injury. HISTORY OF PRESENT ILLNESS: A 39-year-old female who was admitted with COVID-19 infection and worsening shortness of breath. She had her first dose of the Pfizer vaccine, but missed her second dose. 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 I am asked to see her because of a rising serum creatinine. Her creatinine was 0.8 on 09/18 and now is up to 2.5. She is having worsening oxygenation status and is very sensitive to position changes and desats very easily. She has developed ARDS and MRSA pneumonia. She has had some reduction in her urine output as well. She is not requiring any vasopressors. REVIEW OF SYSTEMS: Constitutional, psych, heme, eyes, ENT, respiratory, cardiac, GI, , endocrine, all negative except as documented above and as best can be ascertained. PAST MEDICAL HISTORY: Asthma, possible obstructive sleep apnea, morbid obesity, mention of a history of epilepsy. PAST SURGICAL HISTORY: Cholecystectomy. MEDICATIONS: Reviewed. 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 FAMILY HISTORY: Nonpertinent for this 39-year-old female. CURRENT MEDICATIONS: Reviewed. PHYSICAL EXAMINATION: VITAL SIGNS: Blood pressure 135/74, pulse 80, respirations 24, temperature 35.6. GENERAL: Intubated and sedated. EYES: Closed. EARS: Externally normal. CARDIOVASCULAR : [place] [address] CONSULTATION Name: GISELL JUAREZ Room: [address]#: [id number] Admission: 09/18/20 Attend Phys: Haydee Cha MD Discharge: Date of : 78 Report #: [id number] LUNGS: Diminished. ABDOMEN: Soft. MUSCULOSKELETAL: Nontender. NEUROLOGIC: Intubated and sedated. LABORATORY DATA: White cell count 16, hemoglobin 10.3, platelets 53. Sodium 144, potassium 3.7, chloride 108, bicarbonate 24, BUN 39, creatinine 2.5, glucose 152, calcium 7.3, magnesium 2.3, albumin 3.0. ASSESSMENT AND PLAN: 1. Acute kidney injury with a creatinine rising from 0.8-2.5. Kidney ultrasound was okay. UA noted on vancomycin and has methicillin-resistant Staphylococcus aureus pneumonia as well as COVID-19 infection. 2. Methicillin-resistant Staphylococcus aureus pneumonia. 3. Hematuria. 4. Thrombocytopenia. 5. Acute respiratory distress syndrome. 6. COVID-19 infection. 7. History of bronchial asthma. 8. Morbid obesity. 9. Suspected underlying obstructive sleep apnea. PLAN: With reduced urine output and high oxygen needs, she is currently on 100% FIO2 with 12 PEEP. We will arrange for a temporary dialysis catheter to be placed. I did attempt to reach out to family contacted both numbers given to me, but I was unable to ask nurse to contact the family and to page me if they would like any update or information, but at this time, we will plan for temporary dialysis catheter placement. I did discuss with Dr. Causey. She prefers to avoid the neck as the patient is very sensitive position changes and is at risk for barotrauma. We will request a femoral line to be placed. A heparin antibody has been sent for the thrombocytopenia. We will dialyze today and then dialyze again tomorrow with an ultrafiltration. We will follow along with you. Thank you for requesting my opinion in the care and management of this patient. <ELECTRONICALLY SIGNED> By: Fawad Stevens MD 09/27/20 1006 1321 1903Ageoff Stevens MD /nt
--- NOTE | 2020-09-27 11:34 | NUR ---
Vm from Aracely/Sudeep requesting pt to be transferred to in network facility when stable. Per report today, pt not stable due to initiating CRRT. Notified [facility] per VM
[2020-09-27 15:09] LABS: BE -7.3 mmol/L (-2 to +3); PCO2 39.8 mmHg (35.0-45.0); PO2 78.2 mmHg (75.0-100.0)
[2020-09-27 15:15] LABS: pH 7.291 (7.340-7.450)
[2020-09-28] VITALS (40 sets, daily range): BP systolic 89–146; BP diastolic 52–82
[2020-09-28 05:25] LABS: MPV 8.4 fl. (7.2-11.1); NUCLEATED RBCS 0 /100WBC
[2020-09-28 05:27] LABS: ABSOLUTE BASOPHILS 0.1 thou/uL (0.0-0.2); ABSOLUTE EOSINOPHILS 0.5 thou/uL (0.0-0.7); ABSOLUTE LYMPHOCYTES 0.4 thou/uL (0.8-5.3); ABSOLUTE MONOCYTES 1.3 thou/uL (0.0-1.2); ABSOLUTE NEUTROPHILS 19.7 thou/uL (1.6-8.1); BASOPHILS 0.5 %; EOSINOPHILS 2.1 %; HEMATOCRIT 28.5 % (37.0-47.0); HEMOGLOBIN 9.6 gm/dL (12.0-15.0); MCH 28.7 pg (26.0-34.0); MCHC 33.8 g/dL (28.0-37.0); MCV 84.8 fL (80.0-100.0); MONOCYTES 5.8 %; POLYS 89.6 %; RBC 3.36 mil/uL (4.20-5.00); RDW-CV 14.5 % (10.5-14.5)
[2020-09-28 05:38] LABS: PLATELET COUNT* 45 thou/uL (150-400)
[2020-09-28 05:43] LABS: ALBUMIN 2.6 g/dL (3.4-5.0); CALCIUM 7.7 mg/dL (8.5-10.1); CREATININE 3.4 mg/dL (0.6-1.3); MAGNESIUM 2.4 mg/dL (1.8-2.4); POTASSIUM 4.7 mmol/L (3.5-5.1); TOTAL BILIRUBIN 0.9 mg/dL (<0.1-1.0); TOTAL PROTEIN 5.4 g/dL (6.4-8.2)
[2020-09-28 08:37] LABS: BE -5.9 mmol/L (-2 to +3); PCO2 35.9 mmHg (35.0-45.0); pH 7.345 (7.340-7.450)
[2020-09-28 19:56] LABS: CALCIUM 7.8 mg/dL (8.5-10.1); MAGNESIUM 2.2 mg/dL (1.8-2.4); POTASSIUM 4.9 mmol/L (3.5-5.1)
[2020-09-28 19:59] LABS: CREATININE 2.4 mg/dL (0.6-1.3)
[2020-09-29] VITALS (83 sets, daily range): BP systolic 80–178; BP diastolic 49–98
[2020-09-29 05:25] LABS: BE -1.9 mmol/L (-2 to +3); PCO2 39.5 mmHg (35.0-45.0); PO2 111.2 mmHg (75.0-100.0); pH 7.383 (7.340-7.450)
[2020-09-29 06:23] LABS: HEMOGLOBIN 7.9 gm/dL (12.0-15.0); MCH 28.2 pg (26.0-34.0); MCV 85.4 fL (80.0-100.0); RBC 2.81 mil/uL (4.20-5.00); RDW-CV 14.8 % (10.5-14.5); WBC 29.2 thou/uL (4.0-11.0)
[2020-09-29 06:39] LABS: ALBUMIN 2.2 g/dL (3.4-5.0); CALCIUM 7.8 mg/dL (8.5-10.1); CREATININE 2.7 mg/dL (0.6-1.3); POTASSIUM 5.5 mmol/L (3.5-5.1); TOTAL BILIRUBIN 0.8 mg/dL (<0.1-1.0); TOTAL PROTEIN 4.9 g/dL (6.4-8.2)
--- NOTE | 2020-09-29 12:20 | NUR ---
CRRT RESTARTED AT 1115 WITH LT JUGULAR ACCESS. LASIX DRIP STARTED AT 10 MG/HR PER DR REYEZ.
[2020-09-29 16:10] LABS: HEMOGLOBIN 7.2 gm/dL (12.0-15.0)
[2020-09-29 16:21] LABS: CALCIUM 6.7 mg/dL (8.5-10.1); MAGNESIUM 1.7 mg/dL (1.8-2.4); PHOSPHORUS* 4.2 mg/dL (2.5-4.9)
[2020-09-29 16:24] LABS: CREATININE 1.7 mg/dL (0.6-1.3)
--- NOTE | 2020-09-29 19:00 | NUR ---
VENT SETTINGS UNCHANGED EXCEPT FIO2 DOWN TO 65%. TOLERATING ONLY RT SIDE. CRRT CONTD WITHOUT ANY ISSUES. INCREASED UF TO 300, GOAL 200-300 TOLERATED. FAMILY UPDATED.
[2020-09-29 20:25] LABS: HEMATOCRIT 25.6 % (37.0-47.0); HEMOGLOBIN 8.5 gm/dL (12.0-15.0)
[2020-09-29 20:32] LABS: CALCIUM 8.4 mg/dL (8.5-10.1); CREATININE 1.8 mg/dL (0.6-1.3); MAGNESIUM 2.4 mg/dL (1.8-2.4); PHOSPHORUS* 5.2 mg/dL (2.5-4.9); POTASSIUM 4.5 mmol/L (3.5-5.1)
[2020-09-30] VITALS (31 sets, daily range): BP systolic 65–202; BP diastolic 39–109
[2020-09-30 00:40] LABS: HEMATOCRIT 23.3 % (37.0-47.0); HEMOGLOBIN 7.7 gm/dL (12.0-15.0)
[2020-09-30 01:14] LABS: CALCIUM 7.9 mg/dL (8.5-10.1); CREATININE 1.7 mg/dL (0.6-1.3); POTASSIUM 4.3 mmol/L (3.5-5.1)
[2020-09-30 04:19] LABS: HEMATOCRIT 25.7 % (37.0-47.0); HEMOGLOBIN 8.4 gm/dL (12.0-15.0); MCH 27.8 pg (26.0-34.0); MCHC 32.9 g/dL (28.0-37.0); MCV 84.5 fL (80.0-100.0); MPV 8.4 fl. (7.2-11.1); NUCLEATED RBCS 0 /100WBC; PLATELET COUNT* 84 thou/uL (150-400); RBC 3.04 mil/uL (4.20-5.00); RDW-CV 15.1 % (10.5-14.5)
[2020-09-30 04:35] LABS: WBC 45.3 thou/uL (4.0-11.0)
[2020-09-30 04:46] LABS: ALBUMIN 2.5 g/dL (3.4-5.0); CALCIUM 8.3 mg/dL (8.5-10.1); CREATININE 1.4 mg/dL (0.6-1.3); MAGNESIUM 2.1 mg/dL (1.8-2.4); POTASSIUM 4.4 mmol/L (3.5-5.1); TOTAL BILIRUBIN 0.9 mg/dL (<0.1-1.0); TOTAL PROTEIN 5.7 g/dL (6.4-8.2)
[2020-09-30 05:42] LABS: ABSOLUTE LYMPHOCYTES 1.4 thou/uL (0.8-5.3); ABSOLUTE MONOCYTES 2.3 thou/uL (0.0-1.2); ABSOLUTE NEUTROPHILS 41.7 thou/uL (1.6-8.1); HYPOCHROMASIA 1+; PLATELET ESTIMATE DECREASED; TOXIC GRANULATION 2+
[2020-09-30 08:28] LABS: BE 0.1 mmol/L (-2 to +3); PCO2 38.1 mmHg (35.0-45.0); PO2 72.7 mmHg (75.0-100.0); pH 7.425 (7.340-7.450)
[2020-09-30 08:28] LABS: HEMATOCRIT 24.7 % (37.0-47.0); HEMOGLOBIN 8.3 gm/dL (12.0-15.0)
[2020-09-30 08:41] LABS: CALCIUM 8.3 mg/dL (8.5-10.1); CREATININE 1.5 mg/dL (0.6-1.3); MAGNESIUM 1.9 mg/dL (1.8-2.4); PHOSPHORUS* 4.6 mg/dL (2.5-4.9); POTASSIUM 4.5 mmol/L (3.5-5.1)
[2020-09-30 12:49] LABS: HEMATOCRIT 27.2 % (37.0-47.0)
[2020-09-30 12:56] LABS: CALCIUM 8.5 mg/dL (8.5-10.1); CREATININE 1.3 mg/dL (0.6-1.3); POTASSIUM 4.4 mmol/L (3.5-5.1)
[2020-09-30 12:59] LABS: MAGNESIUM 2.2 mg/dL (1.8-2.4); PHOSPHORUS* 3.7 mg/dL (2.5-4.9)
[2020-09-30 13:05] LABS: LIPASE 80 U/L (73-393)
--- NOTE | 2020-09-30 14:23 | NUR ---
ICU Rounds: Patient remains on vent (FIO2 65% and peep 12). Continued TF, steroids, abx, versed, fent, pressors and CRRT. Per surgery, patient will need tunneled if alf dialysis is needed. Per Kumari, family discussions are needed to determine best course of treatment. CM to continue to follow for safe dc planning
[2020-09-30 15:00] LABS: APTT 20.5 Seconds (25.0-31.3); INR 1.1; PROTIME 11.7 Seconds (9.20-11.50)
[2020-09-30 18:46] LABS: PCO2 30.5 mmHg (35.0-45.0); PO2 117.7 mmHg (75.0-100.0); pH 7.445 (7.340-7.450)
[2020-10-01] VITALS (32 sets, daily range): BP systolic 92–165; BP diastolic 59–89
[2020-10-01 05:48] LABS: HEMATOCRIT 23.7 % (37.0-47.0); HEMOGLOBIN 7.5 gm/dL (12.0-15.0); MCH 27.5 pg (26.0-34.0); MCHC 31.6 g/dL (28.0-37.0); MCV 87.2 fL (80.0-100.0); MPV 8.9 fl. (7.2-11.1); RBC 2.72 mil/uL (4.20-5.00); RDW-CV 15.2 % (10.5-14.5)
[2020-10-01 05:59] LABS: POTASSIUM 5.2 mmol/L (3.5-5.1)
[2020-10-01 06:01] LABS: CREATININE 2.3 mg/dL (0.6-1.3)
[2020-10-01 06:04] LABS: WBC 67.3 thou/uL (4.0-11.0)
--- NOTE | 2020-10-01 08:16 | NUR ---
ASSUMED PATIENT CARE AT 1900. ASSESSMENTS COMPLETED CHARTED. CARDIAC MONITORING IN PLACE. HOURLY ROUNDING IN PLACE FOR PATIENT SAFETY. FALL PRECAUTIONS IN PLACE FOR PATIENT SAFETY.
[2020-10-01 12:12] LABS: PCO2 33.7 mmHg (35.0-45.0); PO2 74.2 mmHg (75.0-100.0); pH 7.415 (7.340-7.450)
--- NOTE | 2020-10-01 12:28 | NUR ---
CM spoke to [facility] transfer team-[facility] patient scenario of care since admission given per progress notes. Current Vent settings per resp note and need for higher level of care due to CRRT and possible near future need of ECMO. [facility] requested face sheet to be faxed to [phone] and this was done. Waiting to hear back if can accept, [facility] did say pt would need to go to [facility] due to Covid +. shared symptoms started 7 days prior to 09/18/20 admission.
--- NOTE | 2020-10-01 12:38 | NUR ---
Called transfer team spoke to Oc lackey [phone] requested ICU bed for CRRT/Vent pt Was transfered to female who did not give name and immediately stated prior to any discussion on CM part no beds available, call other facilities and was hung up on.
--- NOTE | 2020-10-01 12:48 | NUR ---
Called [facility] Transfer team spoke to Kaushal who took patient name/ and received brief report of pts hospitalization hx to present day. Only two of [facility] facilities can accommodate CRRT and he is check for open beds. Will call back either way today.
--- NOTE | 2020-10-01 15:46 | NUR ---
Case and plan of care reviewed with MD each weekday during patient's length of stay. Continue plan of care per MD orders for current dx. Remains on vent. Family meeting scheduled today. CM continue to work on transfer to high level of care facility, as of this time no ICU beds and limited capabilities for CRRT needs.
--- NOTE | 2020-10-01 17:00 | 2DMMODE ---
[facility] [address] [place] [address] 2 D/M-MODE ECHOCARDIOGRAM Name: GISELL JUAREZ Room: 003-P ADM IN .R.#: [id number] Admission: 09/18/20 Attend Phys: Haydee Cha, Discharge: Date of : 78 Date of Service: 10/01/20 1700 Report #: [id number] THIS REPORT FOR: cc: Carla Rodriguez Mischelle RNP Liston, Michael J. MD [facility] ~ APPROVED REPORT Study performed: 10/01/2020 14:39:30 EXAM: Limited 2D Echocardiogram Patient Location: In-Patient Room #: 003 Status: routine BSA: 2.25 Other Information Technically limited study due to body habitus. Indications Dyspnea ASSESS RIGHT HEART Left Ventricle The left ventricle is normal size. No obvious wall motion abnormalities noted. There is normal left ventricular wall thickness. The left ventricular systolic function is grossly normal. LVEF is 70%. Right Ventricle The right ventricle is grossly normal size. The right ventricular systolic function is normal. Atria The left atrium size is normal. The right atrium size is normal. Aortic Valve The aortic valve is normal in structure. Mitral Valve The mitral valve is normal in structure. Tricuspid Valve [address] [address] 2 D/M-MODE ECHOCARDIOGRAM Name: GISELL JUAREZ Room: [address] ADM IN M.R.#: [id number] Admission: 09/18/20 Attend Phys: Haydee Cha, Discharge: Date of : 78 Date of Service: 10/01/201699 Report #: [id number] Tricuspid valve is not well visualized. Trace tricuspid regurgitation. Unable to assess PA pressure. <Conclusion> The study is technically limited due to body habitus. The left ventricle is normal size. There is normal left ventricular wall thickness. The left ventricular systolic function is grossly normal. LVEF is 70%. No obvious wall motion abnormalities noted. The right ventricle is grossly normal size. <ELECTRONICALLY SIGNED> By: Casey Castaneda MD, FACC 10/01/201699 99 99 Casey Castaneda MD, FACC /INF
[2020-10-01 22:25] LABS: CREATININE 1.6 mg/dL (0.6-1.3); MAGNESIUM 2.1 mg/dL (1.8-2.4); POTASSIUM 4.4 mmol/L (3.5-5.1)
[2020-10-02] VITALS (58 sets, daily range): BP systolic 64–170; BP diastolic 34–85
[2020-10-02 06:30] LABS: HEMATOCRIT 20.1 % (37.0-47.0); MCH 28.1 pg (26.0-34.0); MCHC 32.1 g/dL (28.0-37.0); MCV 87.7 fL (80.0-100.0); MPV 8.9 fl. (7.2-11.1); RBC 2.29 mil/uL (4.20-5.00); RDW-CV 15.8 % (10.5-14.5)
[2020-10-02 06:32] LABS: CALCIUM 7.6 mg/dL (8.5-10.1); CREATININE 1.8 mg/dL (0.6-1.3); POTASSIUM 4.9 mmol/L (3.5-5.1)
[2020-10-02 06:39] LABS: WBC 50.2 thou/uL (4.0-11.0)
[2020-10-02 06:40] LABS: HEMOGLOBIN 6.4 gm/dL (12.0-15.0)
--- NOTE | 2020-10-02 06:52 | NUR ---
PT. CRRT CLOTTED OFF AT 0300. NO BLOOD RETURN. DR. ROJAS NOTIFIED THIS A.M. OF HGB 6.4. ORDER RECEIVED FROM DR. SENA TO INFUSE 1 UNIT PRBC'S. CRRT TO BE RESTARTED THIS A.M. WILL CONTINUE TO MONITOR.
--- NOTE | 2020-10-02 09:30 | NUR ---
ICU Rounds: Patient remains on vent (FiO2 90% and peep 12). Continued fent, precedex, versed, steroids and abx. CRRT. TF on hold at this time per nursing. Will discuss with Kumari to determine continued need for transfer.
[2020-10-02 11:28] LABS: BE 1.7 mmol/L (-2 to +3); PCO2 43.8 mmHg (35.0-45.0); pH 7.403 (7.340-7.450)
[2020-10-02 13:36] LABS: HEMOGLOBIN 7.2 gm/dL (12.0-15.0)
[2020-10-02 14:17] LABS: POTASSIUM 4.3 mmol/L (3.5-5.1)
[2020-10-02 14:31] LABS: CALCIUM 7.7 mg/dL (8.5-10.1); CREATININE 1.5 mg/dL (0.6-1.3); PHOSPHORUS* 4.9 mg/dL (2.5-4.9)
[2020-10-02 18:30] LABS: CALCIUM 7.8 mg/dL (8.5-10.1); CREATININE 1.3 mg/dL (0.6-1.3); PHOSPHORUS* 5.1 mg/dL (2.5-4.9); POTASSIUM 4.3 mmol/L (3.5-5.1)
[2020-10-03] VITALS (98 sets, daily range): BP systolic 103–162; BP diastolic 16–81
[2020-10-03 00:41] LABS: CALCIUM 7.4 mg/dL (8.5-10.1); CREATININE 1.3 mg/dL (0.6-1.3); MAGNESIUM 1.9 mg/dL (1.8-2.4); PHOSPHORUS* 5.4 mg/dL (2.5-4.9); POTASSIUM 4.3 mmol/L (3.5-5.1)
[2020-10-03 05:52] LABS: MCH 28.7 pg (26.0-34.0); MCHC 32.8 g/dL (28.0-37.0); MCV 87.2 fL (80.0-100.0); MPV 8.7 fl. (7.2-11.1); RBC 2.05 mil/uL (4.20-5.00); RDW-CV 15.8 % (10.5-14.5)
--- NOTE | 2020-10-03 05:56 | NUR ---
PT. CRRT CLOTTED OFF AT 2014, DIALYSIS PERSONNEL NOTIFIED, ORDER TO RESTART. CRRT RESTARTED AT 2342. CONTINUES TO RUN AT THIS TIME WITH GOAL OF 100CC OF FLUID TO BE TAKEN OFF PER HOUR. PT. TOLERATING WELL AT THIS TIME. WILL CONTINUE TO MONITOR.
[2020-10-03 06:08] LABS: CALCIUM 7.9 mg/dL (8.5-10.1); CREATININE 0.9 mg/dL (0.6-1.3)
[2020-10-03 06:35] LABS: HEMATOCRIT 17.9 % (37.0-47.0); HEMOGLOBIN 5.9 gm/dL (12.0-15.0)
--- NOTE | 2020-10-03 06:48 | NUR ---
DR. PEREZ NOTIFIED OF PT'S CRITICAL HGB AND PLATELETS. ORDER TO TRANSFUSE 1 UNIT PRBC'S.
[2020-10-03 11:50] LABS: CALCIUM 8.1 mg/dL (8.5-10.1); CREATININE 0.8 mg/dL (0.6-1.3); PHOSPHORUS* 4.6 mg/dL (2.5-4.9); POTASSIUM 4.2 mmol/L (3.5-5.1)
[2020-10-03 11:51] LABS: HEMATOCRIT 21.5 % (37.0-47.0)
[2020-10-03 12:55] LABS: BE -2.8 mmol/L (-2 to +3)
[2020-10-03 12:58] LABS: PCO2 56.9 mmHg (35.0-45.0); PO2 162.2 mmHg (75.0-100.0); pH 7.252 (7.340-7.450)
[2020-10-03 13:04] LABS: APTT 22.8 Seconds (25.0-31.3); INR 1.1; PROTIME 11.6 Seconds (9.20-11.50)
--- NOTE | 2020-10-03 13:06 | NUR ---
ICU Rounds: Patient remains on vent (FiO2 100% and peep 12). Continued, CRRT, precedex, lew, steroids, dilaudid, abx and versed. Kumari to have family discussion today and CNO approved to have family come in to see patient so they have a better understanding of the current condition of the patient. Patient is in COVID isolation.
[2020-10-03 13:19] LABS: DIRECT BILIRUBIN 0.4 mg/dL (<0.1-0.3); TOTAL PROTEIN 5.9 g/dL (6.4-8.2)
[2020-10-03 13:34] LABS: TOTAL BILIRUBIN 1.2 mg/dL (<0.1-1.0)
--- NOTE | 2020-10-03 15:27 | NUR ---
CM FOLLOW UP CALL, ATTEMPTED TO CONTACT HANS PT.'S POINT OF CONTACT WAS NOT SUCCESSFUL REACHING HANS PHONE WAS NOT IN SERVICE.
--- NOTE | 2020-10-03 16:19 | NUR ---
Bare warmer placed on patient, on high, this am at 0800 due to core temp of 95. Continuing to monitor. rehabilitation tech April called to room, warmer on CRRT not functioning, no new orders. Continuing to monitor, blankets placed ontop of warmer pad.
[2020-10-03 17:28] LABS: PO2 75.1 mmHg (75.0-100.0)
[2020-10-03 17:37] LABS: pH 7.298 (7.340-7.450)
[2020-10-03 17:38] LABS: PCO2 57.9 mmHg (35.0-45.0)
[2020-10-03 17:39] LABS: HEMATOCRIT 18.4 % (37.0-47.0)
[2020-10-03 17:50] LABS: CALCIUM 7.9 mg/dL (8.5-10.1); CREATININE 0.6 mg/dL (0.6-1.3); MAGNESIUM 1.7 mg/dL (1.8-2.4); PHOSPHORUS* 3.5 mg/dL (2.5-4.9); POTASSIUM 3.5 mmol/L (3.5-5.1)
[2020-10-04] VITALS (85 sets, daily range): BP systolic 88–199; BP diastolic 47–116
[2020-10-04 00:17] LABS: ABSOLUTE MONOCYTES 2.6 thou/uL (0.0-1.2); BASOPHILS 0.1 %; HEMATOCRIT 24.2 % (37.0-47.0); LYMPHOCYTES 3.2 %; MCH 29.5 pg (26.0-34.0); MCHC 33.5 g/dL (28.0-37.0); MCV 88.2 fL (80.0-100.0); MONOCYTES 8.9 %; MPV 7.6 fl. (7.2-11.1); NUCLEATED RBCS 0 /100WBC; PLATELET COUNT* 89 thou/uL (150-400); POLYS 87.8 %; RBC 2.75 mil/uL (4.20-5.00); RDW-CV 15.8 % (10.5-14.5); WBC 29.6 thou/uL (4.0-11.0)
[2020-10-04 00:20] LABS: HEMOGLOBIN 8.1 gm/dL (12.0-15.0)
[2020-10-04 00:31] LABS: CALCIUM 8.2 mg/dL (8.5-10.1); CREATININE 0.7 mg/dL (0.6-1.3); PHOSPHORUS* 3.1 mg/dL (2.5-4.9); POTASSIUM 3.8 mmol/L (3.5-5.1)
[2020-10-04 06:36] LABS: PLATELET COUNT* 88 thou/uL (150-400)
[2020-10-04 06:38] LABS: HEMATOCRIT 24.4 % (37.0-47.0); HEMOGLOBIN 8.2 gm/dL (12.0-15.0); MCH 29.6 pg (26.0-34.0); MCHC 33.5 g/dL (28.0-37.0); MCV 88.3 fL (80.0-100.0); MPV 7.9 fl. (7.2-11.1); NUCLEATED RBCS 1 /100WBC; RBC 2.76 mil/uL (4.20-5.00); RDW-CV 15.4 % (10.5-14.5); WBC 27.6 thou/uL (4.0-11.0)
[2020-10-04 07:11] LABS: ALBUMIN 4.3 g/dL (3.4-5.0); CALCIUM 8.5 mg/dL (8.5-10.1); CREATININE 0.8 mg/dL (0.6-1.3); POTASSIUM 3.8 mmol/L (3.5-5.1); TOTAL BILIRUBIN 1.4 mg/dL (<0.1-1.0); TOTAL PROTEIN 6.1 g/dL (6.4-8.2)
[2020-10-04 07:34] LABS: BE -0.6 mmol/L (-2 to +3); PCO2 48.5 mmHg (35.0-45.0); PO2 86.5 mmHg (75.0-100.0); pH 7.337 (7.340-7.450)
[2020-10-04 08:37] LABS: ABSOLUTE LYMPHOCYTES 3.9 thou/uL (0.8-5.3); ABSOLUTE MONOCYTES 1.9 thou/uL (0.0-1.2); ABSOLUTE NEUTROPHILS 21.8 thou/uL (1.6-8.1)
[2020-10-04 08:38] LABS: PLATELET ESTIMATE ADEQUATE
[2020-10-04 11:51] LABS: HEMATOCRIT 24.8 % (37.0-47.0); HEMOGLOBIN 8.3 gm/dL (12.0-15.0); MCH 29.8 pg (26.0-34.0); MCHC 33.6 g/dL (28.0-37.0); MCV 88.6 fL (80.0-100.0); MPV 7.7 fl. (7.2-11.1); RBC 2.8 mil/uL (4.20-5.00); RDW-CV 15.6 % (10.5-14.5); WBC 26.8 thou/uL (4.0-11.0)
[2020-10-04 12:00] LABS: CREATININE 0.8 mg/dL (0.6-1.3); MAGNESIUM 1.9 mg/dL (1.8-2.4); PHOSPHORUS* 2.6 mg/dL (2.5-4.9); POTASSIUM 3.9 mmol/L (3.5-5.1)
--- NOTE | 2020-10-04 12:02 | NUR ---
ICU UPDATE: PT IS ON O2 AT 80%. PT IS ON PRESSORS.
--- NOTE | 2020-10-04 14:35 | NUR ---
CM RISK MANAGEMENT MANAGER REVIEW on 10-04-20 and agree that Note can be placed in the MEDICAL RECORD - Concepción Feliciano RN 10-04-20 Call to Krys Schmidt the patient mother at [phone] was very happy with nurse Solitario in helping to set up a Facebook meeting virtually. Feels that nursing and CM continue to update the mother and mother feels that all her questions have been answered. Notified Mother that CM will continue to follow as plan of care progressing. Mother reports that beginning on Wednesday she can be reached via her cell at [phone]. Noted CM allowed Mother and Father to express their thoughts and emotions and offered much support on an extensive call.
--- NOTE | 2020-10-04 15:10 | NUR ---
RIGHT UPPER EXTREMITY NOTED TO HAVE A CLUSTER OF OPEN BLISTERS NEAR THE AC REGION UP TOWARDS MID AXILLARY. WOUNDS SPRAYED WITH CLEANSER AND DUODERM PLACED BY WOUND NURSE.
--- NOTE | 2020-10-04 15:13 | NUR ---
WOUND NURSE: PATIENT SEEN TO ADDRESS MULTIPLE BULLAE PRESENT ON THE RIGHT UPPER EXTREMITY. ETIOL UNKNOWN BY THIS NURSE. CLEANSED WITH WOUND CLEANSER AND GAUZE. APPLIED EXUDERM TO AFFECTED AREAS. AFFECTED AREA MEASURES 14.5 X 5.0 CM. DEPTH ARE ALL SUPERFICIAL. CONTAINS NO ACTIVE DRAINAGE. PATIENT IS VENTILATED AND NONTEACHEABLE.
--- NOTE | 2020-10-04 15:13 | NUR ---
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 SYSTEM RESTARTED AT 1125 WITH CONTINUED GOAL OF 150CC REMOVAL. PATIENT TOLERATING WELL.
[2020-10-04 17:19] LABS: HEMATOCRIT 25.3 % (37.0-47.0); HEMOGLOBIN 8.3 gm/dL (12.0-15.0); MCH 29.4 pg (26.0-34.0); MCV 89.1 fL (80.0-100.0); RBC 2.84 mil/uL (4.20-5.00); RDW-CV 15.4 % (10.5-14.5); WBC 28.4 thou/uL (4.0-11.0)
[2020-10-04 17:26] LABS: CALCIUM 8.2 mg/dL (8.5-10.1); CREATININE 0.7 mg/dL (0.6-1.3); MAGNESIUM 1.8 mg/dL (1.8-2.4); PHOSPHORUS* 2.7 mg/dL (2.5-4.9); POTASSIUM 3.5 mmol/L (3.5-5.1)
--- NOTE | 2020-10-04 23:17 | NUR ---
2300 ATTEMPT ORAL CARE AND REPOSITION. PT VAGEL. HR 35 BP 73/35
[2020-10-05] VITALS (96 sets, daily range): BP systolic 72–147; BP diastolic 39–82
[2020-10-05 00:40] LABS: HEMATOCRIT 25.5 % (37.0-47.0); HEMOGLOBIN 8.5 gm/dL (12.0-15.0); MCH 29.8 pg (26.0-34.0); MCHC 33.5 g/dL (28.0-37.0); MCV 89.1 fL (80.0-100.0); MPV 7.8 fl. (7.2-11.1); RBC 2.86 mil/uL (4.20-5.00); RDW-CV 15.4 % (10.5-14.5); WBC 27.8 thou/uL (4.0-11.0)
[2020-10-05 00:48] LABS: CALCIUM 8.1 mg/dL (8.5-10.1); CREATININE 0.7 mg/dL (0.6-1.3); MAGNESIUM 1.8 mg/dL (1.8-2.4); PHOSPHORUS* 2.3 mg/dL (2.5-4.9); POTASSIUM 3.9 mmol/L (3.5-5.1)
[2020-10-05 06:32] LABS: ABSOLUTE BASOPHILS 0.1 thou/uL (0.0-0.2); ABSOLUTE LYMPHOCYTES 0.9 thou/uL (0.8-5.3); ABSOLUTE MONOCYTES 2.3 thou/uL (0.0-1.2); ABSOLUTE NEUTROPHILS 27.3 thou/uL (1.6-8.1); BASOPHILS 0.3 %; HEMOGLOBIN 8.8 gm/dL (12.0-15.0); LYMPHOCYTES 2.9 %; MCHC 33.9 g/dL (28.0-37.0); MCV 88.4 fL (80.0-100.0); MONOCYTES 7.4 %; MPV 7.9 fl. (7.2-11.1); NUCLEATED RBCS 0 /100WBC; PLATELET COUNT* 68 thou/uL (150-400); POLYS 89.4 %; RBC 2.94 mil/uL (4.20-5.00); RDW-CV 15.9 % (10.5-14.5); WBC 30.5 thou/uL (4.0-11.0)
[2020-10-05 06:40] LABS: ALBUMIN 3.6 g/dL (3.4-5.0); CALCIUM 8.2 mg/dL (8.5-10.1); CREATININE 0.7 mg/dL (0.6-1.3); MAGNESIUM 1.8 mg/dL (1.8-2.4); POTASSIUM 3.9 mmol/L (3.5-5.1); TOTAL BILIRUBIN 1.2 mg/dL (<0.1-1.0); TOTAL PROTEIN 5.7 g/dL (6.4-8.2)
[2020-10-05 06:50] LABS: PHOSPHORUS* 2.3 mg/dL (2.5-4.9)
[2020-10-05 08:29] LABS: BE 1.8 mmol/L (-2 to +3); PO2 72.2 mmHg (75.0-100.0)
[2020-10-05 08:31] LABS: PCO2 51.9 mmHg (35.0-45.0)
[2020-10-06] VITALS (45 sets, daily range): BP systolic 82–157; BP diastolic 44–91
[2020-10-06 06:30] LABS: ABSOLUTE BASOPHILS 0.1 thou/uL (0.0-0.2); ABSOLUTE LYMPHOCYTES 0.9 thou/uL (0.8-5.3); ABSOLUTE MONOCYTES 1.4 thou/uL (0.0-1.2); ABSOLUTE NEUTROPHILS 29.6 thou/uL (1.6-8.1); BASOPHILS 0.3 %; EOSINOPHILS 0.1 %; HEMATOCRIT 24.4 % (37.0-47.0); HEMOGLOBIN 8.1 gm/dL (12.0-15.0); LYMPHOCYTES 2.8 %; MCH 30.1 pg (26.0-34.0); MCHC 33.2 g/dL (28.0-37.0); MCV 90.8 fL (80.0-100.0); MONOCYTES 4.4 %; MPV 8.4 fl. (7.2-11.1); NUCLEATED RBCS 0 /100WBC; PLATELET COUNT* 51 thou/uL (150-400); POLYS 92.4 %; RBC 2.68 mil/uL (4.20-5.00); RDW-CV 16.5 % (10.5-14.5)
[2020-10-06 06:36] LABS: BE -6.5 mmol/L (-2 to +3); pH 7.303 (7.340-7.450)
[2020-10-06 06:52] LABS: CALCIUM 7.7 mg/dL (8.5-10.1); CREATININE 1.2 mg/dL (0.6-1.3); MAGNESIUM 1.9 mg/dL (1.8-2.4); POTASSIUM 4.3 mmol/L (3.5-5.1); TOTAL BILIRUBIN 0.9 mg/dL (<0.1-1.0); TOTAL PROTEIN 5.1 g/dL (6.4-8.2)
--- NOTE | 2020-10-06 10:59 | CON ---
[address] [address] CONSULTATION Name: GISELL JUARZE Room: [address] IN M.R.#: [id number] Admission: 09/18/20 Attend Phys: Haydee Cha MD Discharge: Date of : 78 Report #: [id number] THIS REPORT FOR: cc: Carla Rodriguez Mischelle RNP Namin, Farid M. MD ~ DATE OF CONSULTATION: 10/04/2020 REFERRING PHYSICIAN: Dr. Kassi Kumari. HISTORY OF PRESENT ILLNESS: This is a 39-year-old female with history of seizure, asthma, who presented to hospital on 09/18 after being positive for COVID, 7-day prior to that date. The patient had symptoms associated with body aches, headache and generalized fever. Apparently, she has had gotten only one dose of her Pfizer vaccination. Since hospitalization, the patient has developed respiratory failure. She is intubated and sedated. Her initial hemoglobin was 13.3 and is currently around 8. Since admission, she had couple of blood draws that show a hemoglobin of 6.6. She has received transfusions. Per nursing, there is no evidence of GI bleeding as she has not had any bowel movements for the past couple of days. There is no blood in the OG as well. PAST MEDICAL HISTORY: Significant for history of morbid obesity, COVID infection, seizure disorder, asthma. ALLERGIES AND MEDICATIONS: Please refer to MAR. SOCIAL HISTORY: The patient does not have any history of drug, tobacco or alcohol. FAMILY HISTORY: Negative for GI malignancy. PHYSICAL EXAMINATION: GENERAL: Reveals a morbidly obese female who is intubated and sedated. LUNGS: Breath sounds are audible bilaterally. CARDIAC: Regular rate. ABDOMEN: Large, soft, nondistended. Decreased bowel sounds. NEUROLOGIC: The patient is sedated. LABORATORY DATA: Reveal sodium of 140, potassium 3.9, BUN is 25, creatinine 0.8, AST is 59, ALT 75 with alkaline phosphatase of 98, total bilirubin is 1.4, albumin is 4.3. WBC is 28, hemoglobin is 8.3, platelet is 70. IMAGING: Chest x-ray from today reveals improved [place] [id number] CONSULTATION Name: GISELL JUAREZ WILLI Room: [address] IN [facility]#: [id number] Admission: 09/18/20 Attend Phys: Haydee Cha MD Discharge: Date of : 78 Report #: [id number] resolution of bibasilar infiltrates. ASSESSMENT AND PLAN: 1. The patient with COVID infection and respiratory failure, who is intubated and sedated. She is on FiO2 of 85% with PEEP of 12. Remains stable. 2. Seizure disorder. Appears stable as the patient has not had any seizure activity recently. 3. Anemia. We will consider upper endoscopy to further evaluate her anemia. She has not had any hematochezia, melena or blood in OG aspiration. 4. Abnormal liver enzymes. We will obtain abdominal ultrasound as the ultrasound performed on was poor study with poor visualization. I will also order GGT. 5. Anemia. We will obtain B12, folic acid and iron study. 6. Morbid obesity. 7. We will continue monitoring her hemoglobin and make further recommendations. Note that this consult took 62 minutes. <ELECTRONICALLY SIGNED> By: Arnav Healy MD 10/06/20 1059 [id number] Healy MD /nt
[2020-10-06 16:21] LABS: CALCIUM 7.5 mg/dL (8.5-10.1); CREATININE 1.3 mg/dL (0.6-1.3); POTASSIUM 3.8 mmol/L (3.5-5.1)
[2020-10-06 16:24] LABS: MAGNESIUM 1.8 mg/dL (1.8-2.4); PHOSPHORUS* 2.3 mg/dL (2.5-4.9)
[2020-10-07] VITALS (73 sets, daily range): BP systolic 85–138; BP diastolic 45–82
[2020-10-07 00:19] LABS: HEMOGLOBIN 8.5 gm/dL (12.0-15.0); MCH 29.6 pg (26.0-34.0); MCHC 32.6 g/dL (28.0-37.0); MCV 90.8 fL (80.0-100.0); MPV 8.1 fl. (7.2-11.1); NUCLEATED RBCS 0 /100WBC; RBC 2.86 mil/uL (4.20-5.00); RDW-CV 16.6 % (10.5-14.5)
[2020-10-07 00:24] LABS: CALCIUM 8.2 mg/dL (8.5-10.1); CREATININE 0.9 mg/dL (0.6-1.3); MAGNESIUM 1.8 mg/dL (1.8-2.4); PHOSPHORUS* 2.2 mg/dL (2.5-4.9)
[2020-10-07 00:25] LABS: PLATELET COUNT* 40 thou/uL (150-400); WBC 47.2 thou/uL (4.0-11.0)
[2020-10-07 01:22] LABS: ABSOLUTE LYMPHOCYTES 1.4 thou/uL (0.8-5.3); ABSOLUTE MONOCYTES 0.5 thou/uL (0.0-1.2); ABSOLUTE NEUTROPHILS 45.3 thou/uL (1.6-8.1); METAMYELOCYTES 1 %; MYELOCYTES 2 %
[2020-10-07 01:24] LABS: PLATELET ESTIMATE ADEQUATE
[2020-10-07 01:25] LABS: ANISOCYTOSIS 1+
[2020-10-07 06:33] LABS: ABSOLUTE BASOPHILS 0.1 thou/uL (0.0-0.2); ABSOLUTE LYMPHOCYTES 1.1 thou/uL (0.8-5.3); ABSOLUTE MONOCYTES 1.5 thou/uL (0.0-1.2); ABSOLUTE NEUTROPHILS 35.1 thou/uL (1.6-8.1); BASOPHILS 0.3 %; EOSINOPHILS 0.1 %; HEMATOCRIT 22.9 % (37.0-47.0); HEMOGLOBIN 7.4 gm/dL (12.0-15.0); LYMPHOCYTES 2.8 %; MCH 29.4 pg (26.0-34.0); MCHC 32.2 g/dL (28.0-37.0); MCV 91.4 fL (80.0-100.0); NUCLEATED RBCS 0 /100WBC; POLYS 92.8 %; RDW-CV 17.1 % (10.5-14.5); WBC 37.8 thou/uL (4.0-11.0)
[2020-10-07 06:42] LABS: PLATELET COUNT* 37 thou/uL (150-400)
[2020-10-07 06:47] LABS: ALBUMIN 2.6 g/dL (3.4-5.0); CALCIUM 7.8 mg/dL (8.5-10.1); MAGNESIUM 1.7 mg/dL (1.8-2.4); PHOSPHORUS* 2.4 mg/dL (2.5-4.9); POTASSIUM 4.2 mmol/L (3.5-5.1); TOTAL BILIRUBIN 0.9 mg/dL (<0.1-1.0); TOTAL PROTEIN 4.9 g/dL (6.4-8.2)
[2020-10-07 08:41] LABS: BE -2.3 mmol/L (-2 to +3); PCO2 43.7 mmHg (35.0-45.0); PO2 73.1 mmHg (75.0-100.0); pH 7.345 (7.340-7.450)
[2020-10-07 08:56] LABS: URINE BILIRUBIN NEGATIVE (Negative); URINE BLOOD 3+ (Negative); URINE CLARITY CLEAR; URINE COLOR YELLOW; URINE GLUCOSE-RANDOM NEGATIVE (Negative); URINE KETONES NEGATIVE (Negative); URINE LEUKOCYTES-REFLEX TRACE (Negative); URINE NITRITE-REFLEX NEGATIVE (Negative); URINE PROTEIN 1+ (Negative); URINE UROBILINOGEN 0.2 E.U./dl (0.2-1.0)
[2020-10-07 09:10] LABS: BACTERIA-REFLEX 1-9 Few /HPF (None Seen); COARSE GRANULAR CASTS 0-3 Few /LPF (None Seen); HYALINE CASTS 0-3 Few /LPF (None Seen); MUCUS 0-3 Light strn/LPF (None Seen); SQUAMOUS 0-3 Few /LPF (0-3); URINE RBC 3-10 Few /HPF (0-2); URINE WBC-REFLEX 0-5 Rare /HPF (0-5)
[2020-10-07 09:11] LABS: CRYSTALS None Seen /LPF (None Seen); YEAST-REFLEX Present (None Seen)
--- NOTE | 2020-10-07 10:35 | NUR ---
ICU ROUNDS: PT ON 1:1 D/T CRRT NEEDS. 90% FI02. PEEP 15. SEDATED; VERSED, DILATED, AND PRECEDEX. EXCHANGED DIALYSIS CATH. PT BP DROPPED AND PT DESAT DURING DIALYSIS EARLY. DR ROWE MAY ORDER TUBE FEEDING IF GI AGREEABLE. THE PLAN IS FOR DR SENA TO CONTACT FAMILY W/UPDATE/PER RNBHANU.
--- NOTE | 2020-10-07 11:00 | NUR ---
CRRT RESTARTED AT 0820 BUT THE LINE CLOTTED OFF AT 0910. DIALYSIS CATHETER EXCHANGED BY LT KENDY HANSEN AT THE BEDSIDE.
[2020-10-07 12:45] LABS: HEMATOCRIT 21.5 % (37.0-47.0); MCH 29.2 pg (26.0-34.0); MCHC 31.9 g/dL (28.0-37.0); MCV 91.5 fL (80.0-100.0); MPV 7.6 fl. (7.2-11.1); RBC 2.35 mil/uL (4.20-5.00); RDW-CV 17.2 % (10.5-14.5); WBC 37.5 thou/uL (4.0-11.0)
[2020-10-07 12:55] LABS: CALCIUM 7.6 mg/dL (8.5-10.1); CREATININE 1.1 mg/dL (0.6-1.3); MAGNESIUM 1.7 mg/dL (1.8-2.4); PHOSPHORUS* 2.2 mg/dL (2.5-4.9); POTASSIUM 4.1 mmol/L (3.5-5.1)
[2020-10-07 12:59] LABS: HEMOGLOBIN 6.9 gm/dL (12.0-15.0)
[2020-10-07 19:18] LABS: HEMATOCRIT 28.6 % (37.0-47.0); MCH 29.3 pg (26.0-34.0); MCV 91.7 fL (80.0-100.0); MPV 8.9 fl. (7.2-11.1); RBC 3.12 mil/uL (4.20-5.00); RDW-CV 16.5 % (10.5-14.5)
[2020-10-07 19:19] LABS: HEMOGLOBIN 9.1 gm/dL (12.0-15.0)
[2020-10-07 19:21] LABS: WBC 49.5 thou/uL (4.0-11.0)
[2020-10-07 19:29] LABS: CALCIUM 7.9 mg/dL (8.5-10.1); CREATININE 0.8 mg/dL (0.6-1.3); MAGNESIUM 2.1 mg/dL (1.8-2.4); PHOSPHORUS* 1.8 mg/dL (2.5-4.9); POTASSIUM 3.9 mmol/L (3.5-5.1)
[2020-10-08] VITALS (60 sets, daily range): BP systolic 19–181; BP diastolic 3–90
[2020-10-08 05:18] LABS: EOSINOPHILS 0.1 %
[2020-10-08 05:21] LABS: BASOPHILS 0.6 %; HEMATOCRIT 29.6 % (37.0-47.0); HEMOGLOBIN 9.7 gm/dL (12.0-15.0); LYMPHOCYTES 2.6 %; MCH 30.4 pg (26.0-34.0); MCHC 32.8 g/dL (28.0-37.0); MCV 92.7 fL (80.0-100.0); MONOCYTES 3.2 %; NUCLEATED RBCS 1 /100WBC; POLYS 93.5 %; RDW-CV 16.6 % (10.5-14.5)
[2020-10-08 05:24] LABS: ABSOLUTE BASOPHILS 0.3 thou/uL (0.0-0.2); ABSOLUTE EOSINOPHILS 0.1 thou/uL (0.0-0.7); ABSOLUTE LYMPHOCYTES 1.4 thou/uL (0.8-5.3); ABSOLUTE MONOCYTES 1.7 thou/uL (0.0-1.2); ABSOLUTE NEUTROPHILS 50.8 thou/uL (1.6-8.1)
[2020-10-08 05:31] LABS: PLATELET COUNT* 39 thou/uL (150-400); WBC 54.3 thou/uL (4.0-11.0)
[2020-10-08 05:52] LABS: ALBUMIN 2.9 g/dL (3.4-5.0); CREATININE 0.7 mg/dL (0.6-1.3); MAGNESIUM 1.8 mg/dL (1.8-2.4); PHOSPHORUS* 2.9 mg/dL (2.5-4.9); POTASSIUM 4.5 mmol/L (3.5-5.1); TOTAL BILIRUBIN 1.2 mg/dL (<0.1-1.0); TOTAL PROTEIN 5.4 g/dL (6.4-8.2)
[2020-10-08 08:50] LABS: BE -1.8 mmol/L (-2 to +3); PCO2 47.5 mmHg (35.0-45.0); PO2 68.7 mmHg (75.0-100.0); pH 7.327 (7.340-7.450)
--- NOTE | 2020-10-08 10:28 | NUR ---
PT TRANSFERRED TO ICU BED WITH ISOEQUILIBRIUM MATTRESS.
--- NOTE | 2020-10-08 10:36 | NUR ---
WOUND NURSE: PATIENT NOT ON ICU BED. TRANSFERED PATIENT ONTO ISOLIBRIUM MATTRESS. SACRAL BORDERED FOAM PLACED AFTER TRANSFER FOR PROTECTION.
[2020-10-08 12:26] LABS: HEMATOCRIT 27.9 % (37.0-47.0); HEMOGLOBIN 9.1 gm/dL (12.0-15.0); MCH 30.5 pg (26.0-34.0); MCHC 32.6 g/dL (28.0-37.0); MCV 93.3 fL (80.0-100.0); MPV 8.9 fl. (7.2-11.1); RBC 2.99 mil/uL (4.20-5.00); RDW-CV 17.2 % (10.5-14.5)
[2020-10-08 12:29] LABS: WBC 47.2 thou/uL (4.0-11.0)
[2020-10-08 12:32] LABS: CALCIUM 7.8 mg/dL (8.5-10.1); CREATININE 0.8 mg/dL (0.6-1.3); MAGNESIUM 1.7 mg/dL (1.8-2.4); POTASSIUM 4.5 mmol/L (3.5-5.1)
[2020-10-08 18:26] LABS: BASOPHILS 0.6 %; EOSINOPHILS 0.1 %; HEMATOCRIT 30.2 % (37.0-47.0); HEMOGLOBIN 9.6 gm/dL (12.0-15.0); LYMPHOCYTES 4.4 %; MCH 29.9 pg (26.0-34.0); MCHC 31.9 g/dL (28.0-37.0); MCV 93.6 fL (80.0-100.0); MONOCYTES 3.7 %; MPV 9.7 fl. (7.2-11.1); NUCLEATED RBCS 1 /100WBC; POLYS 91.2 %; RBC 3.22 mil/uL (4.20-5.00); RDW-CV 17.6 % (10.5-14.5)
[2020-10-08 18:29] LABS: ABSOLUTE BASOPHILS 0.3 thou/uL (0.0-0.2); ABSOLUTE EOSINOPHILS 0.1 thou/uL (0.0-0.7); ABSOLUTE LYMPHOCYTES 2.5 thou/uL (0.8-5.3); ABSOLUTE MONOCYTES 2.1 thou/uL (0.0-1.2)
[2020-10-08 18:31] LABS: CALCIUM 7.8 mg/dL (8.5-10.1); CREATININE 0.7 mg/dL (0.6-1.3); MAGNESIUM 2.3 mg/dL (1.8-2.4); POTASSIUM 4.4 mmol/L (3.5-5.1)
[2020-10-08 18:36] LABS: PLATELET COUNT* 25 thou/uL (150-400)
--- NOTE | 2020-10-08 22:52 | NUR ---
ERMELINDA HUSSEIN CALLED AT 2023. NO PULSE NOTED, MAXED OUT ON LEVO, NEOSYNEPHRINE, AND VASOPRESSIN. PT'S MOTHER, HANS CALLED. INFORMED THIS RN THAT SHE WISHES ALL COMPRESSIONS TO STOP AND FOR PT. TO BE CHEMICAL CODE ONLY. COMPRESSIONS DISCONTINUED. SEE CODE BLUE SHEET. TIME OF DETERMINED BY 2 RN'S. ALL CONSULTS NOTIFIED. DR. SENA TO SIGN CERTIFICATE. ALL PERSONAL BELONGINGS SENT HOME WITH FAMILY. HOME HERE AT 2300. BODY RELEASED TO HOME AT THAT TIME.
== END 2020-10-08 20:47 | DRG 870 ==
LOC: M.ERS 21:11 → M.ICU 09-18 03:43 → M.TBA-ER 09-18 03:43 → M.ICU 09-18 20:40
PROVIDERS: Family Medicine; Internal Medicine; Internal Medicine Critical Care Medicine; Internal Medicine Nephrology; Nurse Practitioner Adult Health; Pediatrics; Personal Emergency Response Attendant; Physical Medicine & Rehabilitation; ADMIT Internal Medicine; ATTEND Internal Medicine
DX: A41.01 Sepsis due to Methicillin susceptible Staphylococcus aureus (principal); U07.1 COVID-19; J12.82 Pneumonia due to coronavirus disease 2019; J80 Acute respiratory distress syndrome; J15.212 Pneumonia due to Methicillin resistant Staphylococcus aureus; J45.901 Unspecified asthma with (acute) exacerbation; N17.9 Acute kidney failure, unspecified; M62.82 Rhabdomyolysis; Z68.43 Body mass index [BMI] 50.0-59.9, adult; J45.909 Unspecified asthma, uncomplicated; G40.909 Epilepsy, unspecified, not intractable, without status epilepticus; E66.01 Morbid (severe) obesity due to excess calories; G47.33 Obstructive sleep apnea (adult) (pediatric); E87.6 Hypokalemia; I95.9 Hypotension, unspecified; R73.9 Hyperglycemia, unspecified; D69.6 Thrombocytopenia, unspecified; R31.9 Hematuria, unspecified; D64.9 Anemia, unspecified; T38.0X5A Adverse effect of glucocorticoids and synthetic analogues, initial encounter; K59.00 Constipation, unspecified; Z66 Do not resuscitate; Z90.49 Acquired absence of other specified parts of digestive tract; Z88.6 Allergy status to analgesic agent; Y92.89 Other specified places as the place of occurrence of the external cause